=== PATIENT | male | born 1955 | race Caucasian/White ===

== ENCOUNTER 2023-08-30 10:18 | Outpatient (OUT) | payer MEDICARE, SELFPAY ==
[2023-08-30 11:46] LABS: Prostate Specific Antigen Scrn 0.44 ng/mL (<=4.00)
--- NOTE | 2023-08-30 12:55 | CT_ITS ---
The [address] [address] Patient Name: OREN PELLETIER MRN: [id number] date: 1955 Sex: M Assigned Patient Location: LAB Current Patient Location: LAB Accession/Order Number: [id number] Exam Date: 08/30/2023 13:02 Report Date: 08/30/2023 15:09 At the request of: MANDEEP CONTEH Procedure: CT lung screening low-dose EXAM TYPE: CT lung screening low-dose INDICATION: Cough, Current smoker COMPARISON: No prior CT scan of the chest available for comparison at the time of this dictation. TECHNIQUE: Noncontrast, Low dose, helical axial images of the chest were obtained, and thin section, axial MIP, and coronal and sagittal reformats were also submitted from the acquisition scanner under radiologist supervision. Each series was submitted in a lung algorithm. Dose reduction techniques were achieved by using automated exposure control and/or adjustment of mA and/or kV according to patient size and/or use of iterative reconstruction technique. FINDINGS: Please note that this examination was tailored for evaluation of pulmonary nodules, and therefore soft tissue detail is suboptimal. Heart size within normal limits. No pericardial effusion. Moderate coronary artery calcification. Normal caliber aorta. No mediastinal, hilar or axillary lymphadenopathy. No central endobronchial nodule. Mild diffuse predominantly paraseptal emphysematous change and bronchial wall thickening. Calcified granulomas right upper lobe. Focal bronchiolectasis left lower lobe. Dependent groundglass opacity and subsegmental atelectasis within the lower lobes bilaterally. Subsegmental atelectasis within the right middle lobe. No focal consolidation or pleural effusion. No pneumothorax. Partially calcified 2 mm right middle lobe juxtapleural nodule (3, 100) Simple hepatic cyst. No acute fracture. IMPRESSION : 1. Lung RADS category 2S: Benign with likely clinically significant finding inflammatory versus infectious bronchiolitis within the lower lobes bilaterally. Continued annual LD screening CT scan of the chest recommended. 2. Chronic changes of COPD. Electronically authenticated by: KM DIALLO Date: 08/30/2023 15:09
== END 2023-08-30 10:19 | disposition home or self-care (01) ==
LOC: LAB 10:21
PROVIDERS: PCP Internal Medicine; Visit Provider Internal Medicine
DX: Z12.5 Encounter for screening for malignant neoplasm of prostate (principal); F17.210 Nicotine dependence, cigarettes, uncomplicated; J44.9 Chronic obstructive pulmonary disease, unspecified
CPT/HCPCS: 36415; 71271; G0103

== ENCOUNTER 2023-09-17 09:45 | Outpatient (OUT) | payer MEDICARE, SELFPAY ==
--- NOTE | 2023-09-17 09:49 | US_ITS ---
The [address] [address] Patient Name: OREN PELLETIER MRN: [id number] date: 1955 Sex: M Assigned Patient Location: US Current Patient Location: US Accession/Order Number: [id number] Exam Date: 09/17/2023 10:00 Report Date: 09/17/2023 11:10 At the request of: MANDEEP CONTEH Procedure: US extremity nonvascular RT EXAM: US extremity nonvascular RT HISTORY: Palpable mass of soft tissue of wrist M79.89 COMPARISON: None. TECHNIQUE: Grayscale and color ultrasound FINDINGS: In the region of the patient's palpable abnormality, right wrist a focal heterogeneous area of hypoechogenicity with lobular contours, elongated measuring 2.2 x 0.4 x 1.2 cm. Additional adjacent lesion having similar echotexture measuring 1.3 x 0.4 x 0.3 cm. No definite color flow. US/US extremity nonvascular RT IMPRESSION: 2 focal avascular hyperechogenic lesion corresponding to the patient's palpable abnormality. These are indeterminate. Consider ganglion cysts Electronically authenticated by: PRABHJOT WU Date: 09/17/2023 11:10
--- OUTSIDE RECORDS SUMMARY | 2023-09-17 09:53 | XMS_ITS | CCD ---
Author Name Unknown Address [address] [place] [address] Organization [facility] Care Team Providers Care Customer Services Supervisor Name Role Phone WERO, DR KAUFMAN Admitting Unavailable WERO, DR KAUFMAN Attending Unavailable WERO, DR KAUFMAN Primary Care Unavailable WERO, DR KAUFMAN Consulting Unavailable WERO, DR KAUFMAN Admitting Unavailable EWRO, DR KAUFMAN Attending Unavailable WERO, DR KAUFMAN Primary Care Unavailable WERO, DR KAUFMAN Consulting Unavailable ASHLEIGH, IMMANUEL KATZ Admitting Unavailable ASHLEIGH, IMMANUEL KATZ Attending Unavailable WERO, DR KAUFMAN Primary Care Unavailable ASHLEIGH, IMMANUEL KATZ Consulting Unavailable WERO, DR KAUFMAN Admitting Unavailable WERO, DR KAUFMAN Attending Unavailable BALL, DR KAUFMAN Primary Care Unavailable WERO, DR KAUFMAN Consulting Unavailable Wero, Evans Unavailable Medications Current Medications Medication Drug Class(es) Dates Sig (Normalized) Sig (Original) amoxicillin 875 mg / clavulanate 125 mg oral tablet (2 sources) Penicillin-class Antibacterial Start: 08-17-2023 take 1 tablet by mouth every twelve hours Amoxicillin-Pot Clavulanate 875-125 MG 1 tablet Orally every 12 hrs for 7 days Aug, Active Chantix Continuing Month Colt (2 sources) Chantix Continuing Month Colt Active varenicline 1 mg oral tablet (1 source) Partial Cholinergic Nicotinic Agonist Start: 09-05-2023 take 1 mg by mouth twice daily Varenicline Active 1 MG PO Twice daily September 05, 2023 12:00am Completed/Discontinued Medications Medication Drug Class(es) Dates Sig (Normalized) Sig (Original) Chantix Continuing Month Colt 1MG (2 sources) Start: 07-23-2019 take 1 tablet by mouth once, then take 1 tablet by mouth twice daily Chantix Continuing Month Colt 1MG Chantix Continuing Month Colt 1MG, 1 (one) Tablet Tablet two times daily # 56, 07/23/2019, Ref. x1. Active Oral two times daily for 28 Begin after completing starter colt *Reorder from [employer] for eRx and Interaction Alerts* Jul, Not-Taking/PRN Problems Active Problems Problem Classification Problem Date Documented Date Episodic/Chronic Acute bronchitis (2 sources) Acute bronchitis; Translations: [Acute bronchitis due to other specified organisms] Episodic Anxiety disorders (2 sources) Generalized anxiety disorder; Translations: [Generalized anxiety disorder] Chronic Chronic obstructive pulmonary disease and bronchiectasis (12 sources) Simple chronic bronchitis; Translations: [Simple chronic bronchitis] Chronic Deficiency and other anemia (4 sources) Anemia, unspecified; Translations: [ANEMIA UNSPECIFIED] Onset: 02-02-2022 Episodic Deficiency and other anemia (2 sources) Megaloblastic anemia; Translations: [Other megaloblastic anemias, not elsewhere classified] Episodic Deficiency and other anemia (2 sources) Anemia; Translations: [Anemia, unspecified] Episodic Diabetes mellitus with complications (1 source) Type 2 diabetes mellitus with hyperglycemia; Translations: [TYPE 2 DM W/HYPERGLYCEMIA] Onset: 11-03-2021 Chronic Disorders of lipid metabolism (3 sources) Pure hypercholesterolemia, unspecified; Translations: [Pure hypercholesterolemia] Onset: 11-02-2021 Chronic Osteoarthritis (2 sources) Osteoarthritis of knee; Translations: [Unilateral primary osteoarthritis, left knee] Chronic Other connective tissue disease (1 source) Mass of wrist; Translations: [Other specified soft tissue disorders] 09-05-2023 Episodic Other connective tissue disease (1 source) Other specified soft tissue disorders; Translations: [Other disorders of soft tissue] 09-05-2023 Episodic Other hematologic conditions (2 sources) Other specified diseases of blood and blood-forming organs; 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] Chronic Other non-traumatic joint disorders (2 sources) Arthralgia of the upper arm; Translations: [Pain in left elbow] Episodic Other non-traumatic joint disorders (2 sources) Arthralgia of the lower leg; Translations: [Pain in left knee] Episodic Other nutritional; endocrine; and metabolic disorders (2 sources) Overweight; Translations: [Overweight] Episodic Other screening for suspected conditions (not mental disorders or infectious disease) (7 sources) Encounter for screening for malignant neoplasm of prostate; Translations: [Serum ferritin high] Onset: 11-02-2021 Episodic Other upper respiratory disease (2 sources) Allergic rhinitis due to pollen; Translations: [Allergic rhinitis due to pollen] Chronic Other upper respiratory infections (2 sources) Acute maxillary sinusitis; Translations: [Acute recurrent maxillary sinusitis] Episodic Substance-related disorders (5 sources) Tobacco user; Translations: [Nicotine dependence, cigarettes, uncomplicated] Chronic Past or Other Problems Problem Classification Problem Date Documented Da te Episodic/Chronic Immunizations and screening for infectious disease (4 sources) Encounter for immunization; Translations: [ENCOUNTER FOR IMMUNIZATION] Onset: 06-07-2021 Episodic Malaise and fatigue (5 sources) Other malaise; Translations: [Other fatigue] Onset: 10-28-2021 Episodic Results Test Name Value Interpretation Reference Range Facility No Panel Informationon 08-30 Prostate Specific Antigen Screen 0.44 ng/mL <=4.00 [facility] CBC AUTO DIFFon 02-02-2022 BASO # 0.1 103/ul Normal 0.0-0.1 [facility] Comment on above: Performed By: #### C BC #### [facility] [address] [place] [address] Dr. Joselito Sauceda Basophils/100 WBC (Bld) 0.8 % Normal 0.2-2.0 [facility] Comment on above: Performed By: #### C BC #### [facility] [address] [place] [address] Dr. Joselito Sauceda EO # 0.2 103/ul Normal 0.0-0.7 [facility] Comment on above: Performed By: #### C BC #### [facility] [address] [place] [address] Dr. Joselito Sauceda Eosinophils/100 WBC (Bld) 2.6 % Normal 0.9-7.0 [facility] Comment on above: Performed By: #### C BC #### [facility] [address] [place] [address] Dr. Joselito Sauceda Erythrocyte distribution width (RBC) [Ratio] 12.7 % Normal 11.0-15.0 [facility] Comment on above: Performed By: #### C BC #### [facility] [address] [place] [address] Dr. Joselito Sauceda Hematocrit (Bld) [Volume fraction] 40.8 % Critically low 42.0-54.0 [facility] Comment on above: Performed By: #### C BC #### [facility] [address] [place] [address] Dr. Joselito Sauceda Hemoglobin (Bld) [Mass/Vol] 14.0 g/dL Normal 14.0-18.0 [facility] Comment on above: Performed By: #### C BC #### [facility] [address] [place] [address] Dr. Joselito Sauceda IG # 0.02 10e3/ul Normal 0.00-0.03 [facility] Comment on above: Performed By: #### C BC #### [facility] [address] [place] [address] Dr. Joselito Sauceda IG % 0.3 % Normal 0.0-0.5 [facility] Comment on above: Performed By: #### C BC #### [facility] [address] [place] [address] Dr. Joselito Sauceda LYMPH # 1.9 103/ul Normal 1.2-3.8 [facility] Comment on above: Performed By: #### C BC #### [facility] [address] [place] [address] Dr. Joselito Sauceda Lymphocytes/100 WBC (Bld) 29.3 % Normal 20.5-60.0 [facility] Comment on above: Performed By: #### C BC #### [facility] [address] [place] [address] Dr. Joselito Sauceda MANUAL DIFF REQ NO Normal [facility] Comment on above: Performed By: #### C BC #### [facility] [address] [place] [address] Dr. Joselito Sauceda MCH (RBC) [Entitic mass] 36.2 pg Critically high 25.9-34.0 [facility] Comment on above: Performed By: #### C BC #### [facility] [address] [place] [address] Dr. Joselito Sauceda MCHC (RBC) [Mass/Vol] 34.3 g/dL Normal 29.9-35.2 [facility] Comment on above: Performed By: #### C BC #### [facility] [address] [address] [address] Joselito Sauceda MCV (RBC) [Entitic vol] 105.4 fL Critically high 80.0-94.0 [facility] Comment on above: Performed By: #### C BC #### [facility] [address] [address] [address] Joselito Sauceda MONO # 0.7 103/ul Normal 0.3-0.8 [facility] Comment on above: Performed By: #### C BC #### [facility] [address] [address] [address] Joselito Sauceda Monocytes/100 WBC (Bld) 10.0 % Normal 1.7-12.0 [facility] Comment on above: Performed By: #### C BC #### [facility] [address] [place] [address] Dr. Joselito Sauceda NEUT # 3.7 103/ul Normal 1.4-6.5 [facility] Comment on above: Performed By: #### C BC #### [facility] [address] [place] [address] Dr. Joselito Sauceda Neutrophils/100 WBC (Bld) 57.0 % Normal 43.0-75.0 [facility] Comment on above: Performed By: #### C BC #### [facility] [address] [address] [address] Joselito Sauceda Platelet mean volume (Bld) [Entitic vol] 9.7 fL Normal 9.5-13.5 [facility] Comment on above: Performed By: #### C BC #### [facility] [address] [address] [address] Joselito Sauceda PLT 226 103/ul Normal 150-450 [facility] Comment on above: Performed By: #### C BC #### [facility] [address] [place] [address] Dr. Joselito Sauceda RBC 3.87 106/ul Critically low 4.70-6.10 [facility] Comment on above: Performed By: #### C BC #### [facility] [address] [address] [address] Joselito Sauceda WBC 6.5 103/ul Normal 4.0-11.0 [facility] Comment on above: Performed By: #### C BC #### [facility] [address] [place] [address] Dr. Joselito Sauceda FERRITINon 11-02-2021 Ferritin [Mass/Vol] 622.0 ng/mL Critically high 17.9-464.0 [facility] Comment on above: Performed By: #### F ERR, B12FOL, FETIBC #### [facility] [address] [place] [address] Dr. Joselito Sauceda GLYCOHEMOGLOBIN A1Con 2021 ADA RECOMMENDATION ADA THERAPEUTIC TARGET 6.0 - 7.0 ACTION SUGGESTED > 7.0 Normal [facility] Comment on above: Performed By: #### A 1C #### [facility] [address] [place] [address] Dr. Joselito Sauceda Glucose [Mass/Vol] 105 mg/dL Normal [facility] Comment on above: Performed By: #### A 1C #### [facility] [address] [place] [address] Dr. Joselito Sauceda HbA1c (Bld) [Mass fraction] 5.3 % Normal <=6.0 [facility] Comment on above: Performed By: #### A 1C #### [facility] [address] [place] [address] Dr. Joselito Sauceda IRON AND TIBCon 11-02-2021 % SATURATION 51.0 % Normal [facility] Comment on above: Performed By: #### F ERR, B12FOL, FETIBC #### [facility] [address] [place] [address] Dr. Joselito Sauceda Iron [Mass/Vol] 158.0 ug/dL Normal 49.0-181.0 [facility] Comment on above: Performed By: #### F ERR, B12FOL, FETIBC #### [facility] [address] [place] [address] Dr. Joselito Sauceda TIBC DIRECT 310.0 ug/dL Normal 261.0-497.0 [facility] Comment on above: Performed By: #### F ERR, B12FOL, FETIBC #### [facility] [address] [place] [address] Dr. Joselito Sauceda VIT B12 AND FOLATEon 022 Cobalamin (Vitamin B12) [Mass/Vol] 452.0 pg/mL Normal 239.0-931.0 [facility] Comment on above: Performed By: #### F ERR, B12FOL, FETIBC #### [facility] [address] [place] [address] Dr. Joselito Sauceda FOLATE 19.80 ng/mL Normal >=2.76 [facility] Comment on above: Performed By: #### F ERR, B12FOL, FETIBC #### [facility] [address] [place] [address] Dr. Joselito Sauceda CBC AUTO DIFFon 10-28-2021 BASO # 0.1 103/ul Normal 0.0-0.1 [facility] Comment on above: Performed By: #### C BC #### [facility] [address] [place] [address] Dr. Joselito Sauceda Basophils/100 WBC (Bld) 0.7 % Normal 0.2-2.0 [facility] Comment on above: Performed By: #### C BC #### [facility] [address] [place] [address] Dr. Joselito Sauceda EO # 0.2 103/ul Normal 0.0-0.7 [facility] Comment on above: Performed By: #### C BC #### [facility] [address] [place] [address] Dr. Joselito Sauceda Eosinophils/100 WBC (Bld) 2.2 % Normal 0.9-7.0 [facility] Comment on above: Performed By: #### C BC #### [facility] [address] [place] [address] Dr. Joselito Sauceda Erythrocyte distribution width (RBC) [Ratio] 12.1 % Normal 11.0-15.0 [facility] Comment on above: Performed By: #### C BC #### [facility] [address] [place] [address] Dr. Joselito Sauceda Hematocrit (Bld) [Volume fraction] 41.1 % Critically low 42.0-54.0 [facility] Comment on above: Performed By: #### C BC #### [facility] [address] [place] [address] Dr. Joselito Sauceda Hemoglobin (Bld) [Mass/Vol] 13.9 g/dL Critically low 14.0-18.0 [facility] Comment on above: Performed By: #### C BC #### [facility] [address] [place] [address] Dr. Joselito Sauceda IG # 0.03 10e3/ul Normal 0.00-0.03 [facility] Comment on above: Performed By: #### C BC #### [facility] [address] [place] [address] Dr. Joselito Sauceda IG % 0.4 % Normal 0.0-0.5 [facility] Comment on above: Performed By: #### C BC #### [facility] [address] [place] [address] Dr. Joselito Sauceda LYMPH # 1.6 103/ul Normal 1.2-3.8 [facility] Comment on above: Performed By: #### C BC #### [facility] [address] [place] [address] Dr. Joselito Sauceda Lymphocytes/100 WBC (Bld) 21.5 % Normal 20.5-60.0 [facility] Comment on above: Performed By: #### C BC #### [facility] [address] [place] [address] Dr. Joselito Sauceda MANUAL DIFF REQ NO Normal [facility] Comment on above: Performed By: #### C BC #### [facility] [address] [place] [address] Dr. Joselito Sauceda MCH (RBC) [Entitic mass] 36.1 pg Critically high 25.9-34.0 [facility] Comment on above: Performed By: #### C BC #### [facility] [address] [address] [address] Joselito Sauceda MCHC (RBC) [Mass/Vol] 33.8 g/dL Normal 29.9-35.2 [facility] Comment on above: Performed By: #### C BC #### [facility] [address] [address] [address] Joselito Sauceda MCV (RBC) [Entitic vol] 106.8 fL Critically high 80.0-94.0 [facility] Comment on above: Performed By: #### C BC #### [facility] [address] [address] [address] Joselito Sauceda MONO # 0.9 103/ul Critically high 0.3-0.8 [facility] Comment on above: Performed By: #### C BC #### [facility] [address] [address] [address] Joselito Sauceda Monocytes/100 WBC (Bld) 12.5 % Critically high 1.7-12.0 [facility] Comment on above: Performed By: #### C BC #### [facility] [address] [address] [address] Joselito Sauceda NEUT # 4.6 103/ul Normal 1.4-6.5 [facility] Comment on above: Performed By: #### C BC #### [facility] [address] [address] [address] Joselito Sauceda Neutrophils/100 WBC (Bld) 62.7 % Normal 43.0-75.0 [facility] Comment on above: Performed By: #### C BC #### [facility] [address] [address] [address] Joselito Sauceda Platelet mean volume (Bld) [Entitic vol] 9.5 fL Normal 9.5-13.5 [facility] Comment on above: Performed By: #### C BC #### [facility] [address] [address] [address] Joselito Sauceda PLT 187 103/ul Normal 150-450 [facility] Comment on above: Performed By: #### C BC #### [facility] [address] [address] [address] Joselito Sauceda RBC 3.85 106/ul Critically low 4.70-6.10 [facility] Comment on above: Performed By: #### C BC #### [facility] [address] [address] [address] Joselito Sauceda WBC 7.4 103/ul Normal 4.0-11.0 [facility] Comment on above: Performed By: #### C BC #### [facility] [address] [address] [address] Joselito Sauceda LIPID PROFILEon 10-28-2021 CHOL-HDL RATIO NORM SEE BELOW Normal [facility] Comment on above: Result Comment: 3.3 - 4.4 LOW RISK 4.4 - 7.1 AVERAGE RISK 7.1 - 11.0 MODERATE RISK >11.0 HIGH RISK Performed By: #### B MP, LIPID #### [facility] [address] [place] [address] Dr. Joselito Sauceda Cholesterol [Mass/Vol] 227 mg/dL Critically high <=200 [facility] Comment on above: Performed By: #### B MP, LIPID #### [facility] [address] [place] [address] Dr. Joselito Sauceda Cholesterol in HDL [Mass/Vol] 66 mg/dL Critically high 40-60 [facility] Comment on above: Performed By: #### B MP, LIPID #### [facility] [address] [address] [address] Joselito Sauceda Cholesterol in LDL [Mass/Vol] 141.6 mg/dL Normal [facility] Comment on above: Performed By: #### B MP, LIPID #### [facility] [address] [address] [address] Joselito Sauceda Cholesterol.total/Cho lesterol in HDL [Mass ratio] 3.4 {ratio} Normal [facility] Comment on above: Performed By: #### B MP, LIPID #### [facility] [address] [place] [address] Dr. Joselito Sauceda HDL NORMAL > or = 60 mg/dl - LOW CARDIOVASCULAR RISK <40 mg/dl - HIGH CARDIOVASCULAR RISK Normal [facility] Comment on above: Performed By: #### B MP, LIPID #### [facility] [address] [address] [address] Joselito Sauceda LDL CALC NORMAL SEE BELOW Normal [facility] Comment on above: Result Comment: <100 mg/dl OPTIMAL 100 - 129 mg/dl NEAR OR ABOVE OPTIMAL 130 - 159 mg/dl BORDERLINE HIGH 160 - 189 mg/dl HIGH >190 mg/dl VERY HIGH Performed By: #### B MP, LIPID #### [facility] [address] [address] [address] Joselito Sauceda Triglyceride [Mass/Vol] 97 mg/dL Normal <=150 [facility] Comment on above: Performed By: #### B MP, LIPID #### [facility] [address] [place] [address] Dr. Joselito Sauceda VLDL CALC 19.4 mg/dL Normal [facility] Comment on above: Performed By: #### B MP, LIPID #### [facility] [address] [address] [address] Joselito Sauceda PROF CHEM 8 (BAS METB)on Anion gap [Moles/Vol] 13.0 mmol/L Normal [facility] Comment on above: Performed By: #### B MP, LIPID #### [facility] [address] [address] [address] Joselito Sauceda Calcium [Mass/Vol] 8.8 mg/dL Normal 8.5-10.1 [facility] Comment on above: Performed By: #### B MP, LIPID #### [facility] [address] [address] [address] Joselito Sauceda Chloride [Moles/Vol] 103 mmol/L Normal 98-107 [facility] Comment on above: Performed By: #### B MP, LIPID #### [facility] [address] [address] [address] Joselito Sauceda CO2 [Moles/Vol] 26.0 mmol/L Normal 22.0-30.0 [facility] Comment on above: Performed By: #### B MP, LIPID #### [facility] [address] [address] [address] Joselito Sauceda Creatinine [Mass/Vol] 0.75 mg/dL Normal 0.66-1.25 [facility] Comment on above: Performed By: #### B MP, LIPID #### [facility] [address] [address] [address] Joselito Sauceda EGFR-AF IRISH >60 Normal >=60 [facility] Comment on above: Performed By: #### B MP, LIPID #### [facility] [address] [address] [address] Joselito Sauceda EGFR-NON AF IRISH >60 Normal >=60 [facility] Comment on above: Performed By: #### B MP, LIPID #### [facility] [address] [address] [address] Joselito Sauceda Glucose [Mass/Vol] 139 mg/dL Critically high 74-106 [facility] Comment on above: Performed By: #### B MP, LIPID #### [facility] [address] [address] [address] Joselito Sauceda Potassium [Moles/Vol] 4.0 mmol/L Normal 3.4-5.0 [facility] Comment on above: Performed By: #### B MP, LIPID #### [facility] [address] [place] [address] Dr. Joselito Sauceda Sodium [Moles/Vol] 138 mmol/L Normal 137-145 [facility] Comment on above: Performed By: #### B MP, LIPID #### [facility] [address] [address] [address] Joselito Sacueda Urea nitrogen [Mass/Vol] 11.0 mg/dL Normal 7.0-18.0 [facility] Comment on above: Performed By: #### B MP, LIPID #### [facility] [address] [address] [address] Joselito Sauceda Urea nitrogen/Creatinine [Mass ratio] 14.7 mg/mg Normal [facility] Comment on above: Performed By: #### B MP, LIPID #### [facility] [address] [address] [address] Joselito Sauceda Vital Signs Date Time Vital Sign Value Performing Clinician Facility 09-05-2023 15:08-0500 Body height 162.56 cm [facility] 09-05-2023 15:08-0500 Body mass index (BMI) [Ratio] 24.3 kg/m2 [facility] 09-05-2023 15:08-0500 Body weight 64.41 kg [facility] 09-05-2023 15:08-0500 Diastolic blood pressure 72 mm[Hg] [facility] 09-05-2023 15:08-0500 Heart rate 69 /min [facility] 09-05-2023 15:08-0500 Respiratory rate 12 /min [facility] 09-05-2023 15:08-0500 Systolic blood pressure 117 mm[Hg] [facility] 08-17-2023 11:30-0500 Body height 162.56 cm Evans Ball Other [facility] 08-17-2023 11:30-0500 Body mass index (BMI) [Ratio] 24.51 kg/m2 Evans Ball Other [employer] Other 08-17-2023 11:30-0500 Body weight 64.77 kg Evans Ball Other [facility] 08-17-2023 11:30-0500 Diastolic blood pressure 76 mm[Hg] Evans Ball Other [facility] 08-17-2023 11:30-0500 Respiratory rate 12 /min Evans Ball Other [email or web address] [facility] [employer] Other 08-17-2023 11:30-0500 Systolic blood pressure 123 mm[Hg] Evans Ball Other [facility] Encounters Encounter Date Encounter Type Care Provider Facility Start: 09-05-2023 End: 09-05-2023 ambulatory [facility] Work Phone: Start: 09-05-2023 End: 09-05-2023 Patient encounter procedure [facility] Work Phone: Start: 08-30-2023 Non-patient / Non-visit [facility] [employer] Work Phone: Start: 08-17-2023 End: 08-17-2023 ambulatory Evans Conteh Other [employer] Other Start: 08-17-2023 Patient encounter procedure Evans Conteh [facility] Start: 08-17-2023 Telephone encounter Evans Conteh [facility] Start: 08-17-2023 End: 08-17-2023 Patient encounter procedure [facility]- Start: 02-02-2022 End: 02-03-[address] EVANS CONTEH Facility:[facility] Start: 11-02-2021 End: 11-03-[address] EVANS CONTEH Facility:[facility] Start: 10-28-2021 End: 10-29-[address] EVANS CONTEH Facility:[facility] Start: 06-07-2021 End: 06-08-2021 ambulatory IMMANUEL SOTELO Facility:[facility] Procedures Date Procedure Procedure Detail Performing Clinician Start: 10-28-[address] TOMPKINS [facility] [place] Comment on above: Performed By: #### P [facility] #### [facility] [address] [place] [address] Dr. Joselito Sauceda Plan of Treatment Date Care Activity Detail Author [facility] Immunizations Immunization Date Immunization Notes Care Provider Fa cility 02-07-2022 Prevnar 20 Evans Conteh Other [facility] 10-19-2020 COVID-19 Vaccine Pfi zer - Documentation Purposes Only Evans Conteh Other [facility] 09-27-2020 COVID-19 Vaccine Pfi zer - Documentation Purposes Only Evans Conteh Other [facility] 06-16-2020 influenza virus vaccine, split virus (incl. purified surface antigen) Evans Conteh Other [employer] Other 06-16-2020 influenza virus vaccine, unspecified formulation [facility] Payers Date Payer Category Payer Medicare [id number] 1961 Self-pay 1955 Unknown [id number] 1955 Unknown [id number] 1955 Unknown [id number] [id number] Unknown [id number] [id number] Unknown Sheela BC/BS [id number] Social History Date Type Detail Facility Sex Assigned At [employer] Other Start: 09-05-2023 Tobacco smoking stat [facility] Smoker (finding) [facility] Start: 1955 Sex Assigned At Male F [facility] Evaluation note 08-17-2023 Note Date & Type Note Facility 08-17-2023 Evaluation note Encounter Date Diagnosis Assessment Notes Aug, Medicare annual wellness visit, subsequent (ICD-10 - Z00.00) Personalized health advice was given to the beneficiary including a written plan for screenings discussed and provided. Advanced care planning reviewed and/or information given as requested. Additional counseling was provided here today in regards to, [ ]. The above visit was performed by [ ], under direct supervision of [ ]. Document reviewed and amended by provider signed below. CLAUDIA given to patient Order for PSA Aug, Cigarette nicotine dependence, uncomplicated (ICD-10 - F17.210) This patient has been encouraged to quit tobacco use immediately. They are aware of the hazards associated with tobacco use, including but not limited to respiratory infections, vascular disease and cancers. Discussed LDCT for lung cancer screening Aug, Simple chronic bronchitis (ICD-10 - J41.0) Mucolytics as needed. Push fluids Instructed on smoking cessation. Aug, Chronic obstructive pulmonary disease with (acute) lower respiratory infection (ICD-10 - J44.0) Instructed to use Robitussin or Mucinex for cough, saline or Flonase NS for congestion, Tylenol for pain and fever. Initiate antibiotics Aug, Screening PSA (prostate specific antigen) (ICD-10 - Z12.5) Denies dysuria or hematuria Yearly PSA and FELA Aug, Colon cancer screening (ICD-10 - Z12.11) Cologuard refused. Last colonoscopy > 10 years ago and refuses repeat. He denies change in appetite, weight or bowel habits. He denies abdominal pain, melena or hematochezia. He denies heartburn or dysphagia [employer] Other Evaluation note Note Date & Type Note Facility Evaluation note No Information [employer] Other Evaluation note Note Date & Type Note Facility Evaluation note Diagnosis Onset Date Cigarette nicotine dependence, uncomplicated acute Palpable mass of soft tissue of wrist acute [facility] Work Phone: History general Narrative - Reported Note Date & Type Note Facility History general Narrative - Reported Type Medical History Elevated ferritin Medical History Macrocytosis Medical History Chronic bronchitis, simple Medical History Pure hypercholesterolemia Medical History Body mass index (BMI ) of 25.0 to 29.9 Medical History Cigarette nicotine d ependence, uncomplicated Medical History COPD exacerbation Medical History Left elbow pain Medical History OPAL (generalized anx iety disorder) Medical History Anemia Medical History Megaloblastic anemia Medical History Primary osteoarthrit is of left knee Medical History Acute pain of left knee Medical History Acute bronchitis due to other specified organisms Medical History Acute recurrent maxi llary sinusitis Medical History Seasonal allergic rh initis due to pollen Surgical History Arthroscopy Knee 09/11/2017 Hospitalization History see surgical history [employer] Other Summary Purpose Family History No Family History Records Found Advance Directives Advance Directive Response Recorded Date/ Time Advance Directives No August 2:45pm Chief Complaint and Reason for Visit Chief Complaint Wellness- Possible U ri - Over It Now Bump on Wrist Reason for Visit Cigarette nicotine d ependence, uncomplicated Palpable mass of soft tissue of wrist Additional Source Comments (unrecognized sect ion and content) No Status Records Found INFORMATION SOURCE (unrecogn ized section and content) DATE CREATED AUTHOR 02/08/2022 [employer] [facility] [facility] REASON FOR VISIT (unrecogniz ed section and content) Wellness- possible URI - ove r it nowLDCT Care Teams (unrecognized sec tion and content) Team Status: Active Member Role Status Dates Evans Conteh , DO Primary Care Provider Active Team Status: Inactive Member Role Status Dates Evans Conteh , DO Attending Provider Active Sta rt: August 17, 2023 End: August 17, 2023 Team Status: Active Member Role Status Dates Evans Conteh , Primary Care Provide r, Attending Provider Active Start: August 30, 2023 Team Status: Inactive Member Role Status Dates Evans Conteh , DO Primary Care Provide r, Attending Provider Active Start: September 05, 2023 End: September 05, 2023 Goals (unrecognized section and content) Goals may be documented in a n alternate section FOR RECORDS PERTAINING TO PATIENTS WHO ARE OR HAVE BEEN ENROLLED IN A CHEMICAL DEPENDENCY/SUBSTANCEABUSE PROGRAM, SOME INFORMATION MAY BE OMITTED. This clinical summary was aggregated from multiple sources. Caution should be exercised in using it in the provision of clinical care. This summary normalizes information from multiple sources, and as a consequence, information in this document may materially change the coding, format and clinical context of patient data. In addition, data may be omitted in some cases. CLINICAL DECISIONS SHOULD BE BASED ON THE PRIMARY CLINICAL RECORDS. [employer] provides no warranty or guarantee of the accuracy or completeness of information in this document.
== END 2023-09-17 09:46 | disposition home or self-care (01) ==
LOC: US 09:45
PROVIDERS: PCP Internal Medicine; Visit Provider Internal Medicine
DX: M79.89 Other specified soft tissue disorders (principal)
CPT/HCPCS: 76882

== ENCOUNTER 2025-01-11 08:44 | Emergency (ER) | payer MEDICARE, SELFPAY ==
[2025-01-11 08:55] VITALS: BP 123/76; PULSE 83; TEMP 37; O2SAT 98; BMI 26.9
--- NOTE | 2025-01-11 09:05 | XR_ITS ---
[id number] Patient Name: OREN PELLETIER MRN: [id number] date: 1955 Sex: M Assigned Patient Location: ED.MAIN Current Patient Location: ED.MAIN Accession/Order Number: [id number] Exam Date: 01/11/2025 10:16 Report Date: 01/11/2025 10:18 At the request of: MINGO GALDAMEZ MD Procedure: XR elbow LT min 3V LEFT ELBOW - 3 views CLINICAL HISTORY: Swelling, likely bursitis COMPARISON: 09/18/2019 FINDINGS: Bursal fluid collection identified moderate in size. Otherwise moderate degenerative changes with ossific spurring and joint space narrowing. No evidence acute fractures or dislocation XR/XR elbow LT min 3V IMPRESSION: Moderate degenerative changes with moderate-sized bursal fluid collection. No fracture-dislocation. Impression dictated by: Edwin Florez M.D. 01/11/2025 10:18 AM Dictation Location: [place] [address] Electronically authenticated by: [id number] Y Date: 01/11/2025 10:18
--- NOTE | 2025-01-11 09:06 | ED.GENADUL1 ---
HPI HPI - General Adult General Chief complaint: Extremity Problem, Nontraumatic Stated complaint: L ELBOW & L ARM SWELLING Time Seen by Provider: 01/11/25 09:01 Source: patient Mode of arrival: walk-in Limitations: no limitations History of Present Illness HPI narrative: 69-year-old male presents to the emergency department for swelling in his left elbow. It originally started 4 days ago and was not precipitated by any trauma. 2 days ago he went to an urgent care where he states they drained 30 mL of brownish liquid. Subsequently its become red and swollen, much more swollen than it was previously. He also states he does not feel good and he had trouble sleeping. Related Data Previous Rx's ?Medication ?Instructions ?Recorded acetaminophen 300 mg-codeine 30 mg 1 tab PO Q6H PRN pain 5 days #20 01/11/25 tablet tabs cephalexin 500 mg capsule 500 mg PO QID 10 days #40 caps 01/11/25 Allergies Allergy/AdvReac Type Severity Reaction Status Date / Time No Known Drug Allergies Allergy Verified 01/11/25 08:59 Review of Systems ROS Narrative A ten point review of systems is negative except as noted above. PFSH PFSH Social History Little interest or pleasure in doing things: not at all Feeling down, depressed, or hopeless: not at all Exam Narrative Exam Narrative: Nurses note and vital signs reviewed and patient is not hypoxic. General: The patient appears well and in no apparent distress. Patient is resting comfortably on cart. Skin: Warm, dry, no pallor noted. There is no rash noted. Head: Normocephalic, atraumatic Eye: Normal conjunctiva, no drainage Ears, Nose, Mouth, and Throat: oral mucosa is moist. Nares patent. Cardiovascular: Regular Rate and Rhythm Respiratory: Patient is in no distress, no accessory muscle use, lungs are clear to auscultation, no wheezing, rales or rhonchi Back: non-tender, no CVA tenderness bilaterally to percussion. GI: Normal bowel sounds, no tenderness to palpation, no masses appreciated. No rebound, guarding, or rigidity noted. Musculoskeletal: The left elbow is examined. There is significant erythema over the olecranon area extending onto the forearm. There is fluctuance to the swelling and it is somewhat warm to touch Neurological: A&O, normal speech Psychiatric: Cooperative Constitutional Vital Signs, click to edit/add: Last Vital Signs Temp 98.6 F 01/11/25 08:55 Pulse 82 01/11/25 09:13 Resp 18 01/11/25 08:55 BP 123/76 01/11/25 08:55 Pulse Ox 98 01/11/25 08:55 O2 Del Method Room Air 01/11/25 08:55 Course Vital Signs Vital signs: Vital Signs Temperature 98.6 F 01/11/25 08:55 Pulse Rate 83 01/11/25 08:55 Respiratory Rate 18 01/11/25 08:55 Blood Pressure 123/76 01/11/25 08:55 Pulse Oximetry 98 01/11/25 08:55 Oxygen Delivery Method Room Air 01/11/25 08:55 Temperature 98.6 F 01/11/25 08:55 Pulse Rate 82 01/11/25 09:13 Respiratory Rate 18 01/11/25 08:55 Blood Pressure 123/76 01/11/25 08:55 Pulse Oximetry 98 01/11/25 08:55 Oxygen Delivery Method Room Air 01/11/25 08:55 Medical Decision Making [facility] Narrative Medical decision making narrative: The patient has bursitis and my concern is for septic bursitis. Dr. Mcwilliams was consulted and we discussed the case including his lab results of elevated WBC and ESR. Dr. Mcwilliams recommends aspiration and culture. He recommended also IV vancomycin and home on oral Keflex and the patient will be seen by Dr. Mcwilliams tomorrow. Brendan wrap and sling applied, application checked by me and found to be appropriate, he is neurovascularly intact. The importance of follow-up was discussed with the patient and his . The following procedure was performed by me. Local infiltration was carried out with 1% lidocaine without epinephrine resulting in complete skin anesthesia. The left elbow olecranon area was prepped with Betadine x 3 and draped sterilely. Using an 18-gauge needle 30 mL of cloudy yellow fluid was extracted. It was sent for culture and cell count. Differential Diagnosis Differential Diagnosis: Bursitis, septic bursitis, cellulitis, abscess Lab Data Lab results reviewed: Yes I reviewed the patient's lab results Labs: Lab Results 01/11/25 Range/Units 09:12 WBC 16.5 H (4.0-11.0) 10^3/uL RBC 3.86 L (4.70-6.10) 10^6/uL Hgb 13.3 L (14.0-18.0) g/dL Hct 38.6 L (42.0-54.0) % MCV 100.0 H (80.0-94.0) fL MCH 34.5 H (25.9-34.0) pg MCHC 34.5 (29.9-35.2) g/dL RDW 12.8 (11.0-15.0) % Plt Count 218 (150-450) 10^3/uL MPV 9.5 (9.5-13.5) fL Seg Neuts % (Manual) 70.0 (43.0-75.0) Lymphocytes % (Manual) 18.0 L (20.5-60.0) % Monocytes % (Manual) 11.0 (1.7-12.0) % Eosinophils % (Manual) 1.0 (0.9-7.0) % Basophils % (Manual) 0.0 L (0.2-2.0) % Neutrophils # (Manual) 11.55 H (1.4-6.5) 10^3/uL Lymphocytes # (Manual) 2.97 (1.20-3.80) 10^3/uL Monocytes # (Manual) 1.81 H (0.30-0.80) 10^3/uL Eosinophils # (Manual) 0.16 (0.00-0.70) 10^3/uL Basophils # (Manual) 0.00 (0.00-0.10) 10^3/uL Anisocytosis 1+ Macrocytosis 1+ ESR 75 H (<=20) mm/hr Sodium 139 (136-145) mmol/L Potassium 4.2 (3.5-5.1) mmol/L Chloride 102 (98-107) mmol/L Carbon Dioxide 26.8 (21.0-32.0) mmol/L Anion Gap 14.4 BUN 13.0 (7.0-18.0) mg/dL Creatinine 0.67 L (0.70-1.30) mg/dL Est GFR ( Amer) >60 (>=60 mL/min/1.73m^2) Est GFR (Non-Af Amer) >60 (>=60 mL/min/1.73m^2) BUN/Creatinine Ratio 19.4 Glucose 110 H (74-106) mg/dL Calcium 9.3 (8.5-10.1) mg/dL Imaging Data Left elbow x-ray: Radiologist's impression: ITS Impressions Elbow X-Ray 01/11/25 09:05 IMPRESSION: Moderate degenerative changes with moderate-sized bursal fluid collection. No fracture-dislocation. Impression dictated by: Edwin Florez M.D. 01/11/2025 10:18 AM Dictation Location: [employer] Electronically authenticated by: [id number] Y Date: 01/11/2025 10:18 Discharge Plan Discharge Chief Complaint: Extremity Problem, Nontraumatic Clinical Impression: Bursitis Patient Disposition: Home, Self-Care Time of Disposition Decision: 11:39 Condition: Good Mode of Transportation: Private Vehicle Prescriptions / Home Meds: New acetaminophen-codeine 300-30 mg tablet 1 tab PO Q6H PRN (Reason: pain) 5 Days Qty: 20 0RF cephalexin 500 mg capsule 500 mg PO QID 10 Days Qty: 40 0RF Print Language: Citizen Of [place] Instructions: Elbow Bursitis (ED) Additional Instructions: Call Dr. Mcwilliams's office in the morning to be seen tomorrow. Leave the Brendan wrap on to prevent reaccumulation of fluid. Limit use of the arm with the sling. Referrals: Physician,Non-Staff, [Physician] - 1 week GRAEME MCWILLIAMS [Referring] - 01/12/25
[2025-01-11 09:13] VITALS: PULSE 82
[2025-01-11 09:18] LABS: Hematocrit 38.6 % (42.0-54.0); Hemoglobin 13.3 g/dL (14.0-18.0); Mean Corpuscular HGB Conc 34.5 g/dL (29.9-35.2); Mean Corpuscular Hemoglobin 34.5 pg (25.9-34.0); Mean Platelet Volume 9.5 fL (9.5-13.5); Platelet Count 218 10^3/uL (150-450); Red Blood Count 3.86 10^6/uL (4.70-6.10); Red Cell Distribution Width 12.8 % (11.0-15.0); White Blood Count 16.5 10^3/uL (4.0-11.0)
[2025-01-11 09:26] LABS: Anion Gap 14.4; BUN Creatinine Ratio 19.4; Calcium 9.3 mg/dL (8.5-10.1); Carbon Dioxide 26.8 mmol/L (21.0-32.0); Chloride 102 mmol/L (98-107); Estimated GFR (African America >60 (>=60 mL/min/1.73m^2); Estimated GFR (Non-African Ame >60 (>=60 mL/min/1.73m^2); Glucose 110 mg/dL (74-106); Potassium 4.2 mmol/L (3.5-5.1); Sodium 139 mmol/L (136-145)
[2025-01-11 09:28] LABS: Erythrocyte Sedimentation Rate 75 mm/hr (<=20)
--- OUTSIDE RECORDS SUMMARY | 2025-01-11 09:34 | XMS_ITS | CCD ---
Author Organization [facility] Care Team Providers Care Carpenter Packing Name Role Phone TERRENCE, DR KAUFMAN Admitting Unavailable TERRENCE, DR KAUFMAN Attending Unavailable TERRENCE, DR KAUFMAN Primary Care Unavailable TERRENCE, DR KAUFMAN Consulting Unavailable TERRENCE, DR KAUFMAN Admitting Unavailable TERRENCE, DR KAUFMAN Attending Unavailable TERRENCE, DR KAUFMAN Primary Care Unavailable TERRENCE, DR KAUFMAN Consulting Unavailable ASHLEIGH, IMMANUEL KATZ Admitting Unavailable ASHLEIGH, IMMANUEL KATZ Attending Unavailable TERRENCE, DR KAUFMAN Primary Care Unavailable ASHLEIGH, IMMANUEL KATZ Consulting Unavailable TERRENCE, DR KAUFMAN Admitting Unavailable TERRENCE, DR KAUFMAN Attending Unavailable TERRENCE, DR KAUFMAN Primary Care Unavailable TERRENCE, DR KAUFMAN Consulting Unavailable Evans Conteh Unavailable DO Evans Conteh Primary Care Provider [phone] DO Scot Garnett Attending Provider Aime ROA Attending Unavailable EVANS CONTEH Referring Unavailable Evans Conteh DO Primary Care Provider [phone] Evans Conteh DO Attending Provider Nimisha Garnett APRN Attending Provider Nimisha Garnett Admitting Unavailable Nimisha Garnett Attending Unavailable Medications Current Medications Medication Drug Class(es) Dates Sig (Normalized) Sig (Original) amoxicillin 875 mg / clavulanate 125 mg oral tablet (2 sources) Penicillin-class Antibacterial Start: 08-17-2023 take 1 tablet by mouth every twelve hours Amoxicillin-Pot Clavulanate 875-125 MG 1 tablet Orally every 12 hrs for 7 days Aug, Active atorvastatin 20 mg oral tablet (7 sources) HMG-CoA Reductase Inhibitor Start: 01-09-2025 take 1 tablet by mouth once daily Start: 05-23-2024 End: 12-29-2024 Atorvastatin 20 mg tablet Discontinued 0 .ROUTE .COMPLEX May 23, 2024 8:21am December 29, 2024 9:03am On Hold: caused excess tearing TAKE 1 TABLET EVERY EVENING Start: 11-28-2023 End: 05-23-2024 take 1 tablet by mouth once daily in the evening Atorvastatin 20 mg tablet Discontinued 20 MG PO Every evening November 28, 2023 12:00am May 23, 2024 8:21am Chantix Continuing Month Colt (2 sources) Chantix Continui ng Month Colt Active Completed/Discontinued Medications Medication Drug Class(es) Dates Sig [...] Begin after completing starter colt *Reorder from [facility] for eRx and Interaction Alerts* Jul, Not-Taking/PRN meloxicam 15 mg oral tablet (5 sources) Nonsteroidal Anti-inflammatory Drug Start: 08-09-2024 take 1 tablet by mouth once daily as needed Start: 04-28-2024 End: 08-09-2024 take 1 tablet by mouth once daily Meloxicam 15 mg tablet Discontinued 15 MG PO Daily April 28, 2024 12:00am August 09, 2024 8:40am varenicline 1 mg oral tablet (7 sources) Partial Cholinergic Nicotinic Agonist Start: 09-05-2023 End: 12-26-2024 take 1 tablet by mouth twice daily Varenicline Tartrate 1 mg tablet Discontinued 1 MG PO Twice daily September 05, 2023 1:00am December 26, 2024 7:06am Problems Active Problems Problem Classification Problem Date Documented Date Episodic/Chronic Acute bronchitis (2 sources) Acute bronchitis; Translations: [Acute bronchitis due to other specified organisms] Episodic Anxiety disorders (2 sources) Generalized anxiety disorder; Translations: [Generalized anxiety disorder] Chronic Chronic obstructive pulmonary disease and bronchiectasis (20 sources) Simple chronic bronchitis; Translations: [Simple chronic bronchitis] Chronic Deficiency and other anemia (5 sources) Anemia, unspecified; Translations: [Anemia, unspecified] Onset: 02-02-2022 Episodic Deficiency and other anemia (2 sources) Megaloblastic anemia; Translations: [Other megaloblastic anemias, not elsewhere classified] Episodic Deficiency and other anemia (4 sources) Anemia; Translations: [Anemia, unspecified] 10-25-2023 Episodic Diabetes mellitus with complications (1 source) Type 2 diabetes mellitus with hyperglycemia; Translations: [TYPE 2 DM W/HYPERGLYCEMIA] Onset: 11-03-2021 Chronic Disorders of lipid metabolism (10 sources) Pure hypercholesterolemia, unspecified; Translations: [Pure hypercholesterolemia] Onset: 11-02-2021 10-23-2023 Chronic Osteoarthritis (9 sources) Osteoarthritis of knee; Translations: [Unilateral primary osteoarthritis, left knee] 10-08-2023 Chronic Other connective tissue disease (5 sources) Mass of wrist; Translations: [Other specified soft tissue disorders] 09-05-2023 Episodic Other connective tissue disease (7 sources) Other specified soft tissue disorders; Translations: [Other disorders of soft tissue] 09-05-2023 Episodic Other connective tissue disease (4 sources) Hand pain; Translations: [Pain in right hand] 10-05-2023 Episodic Other connective tissue disease (3 sources) Bursitis of olecranon of left elbow; Translations: [Olecranon bursitis, left elbow] 01-09-2025 Episodic Other connective tissue disease (1 source) Olecranon bursitis, left elbow; Translations: [Olecranon bursitis, left elbow] Onset: 01-09-2025 Episodic Other hematologic conditions (2 sources) Other specified diseases of blood and blood-forming organs; 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] Chronic Other non-traumatic joint disorders (2 sources) Arthralgia of the upper arm; Translations: [Pain in left elbow] Episodic Other non-traumatic joint disorders (2 sources) Arthralgia of the lower leg; Translations: [Pain in left knee] Episodic Other non-traumatic joint disorders (4 sources) Pain in wrist; Translations: [Pain in right wrist] 10-08-2023 Episodic Other non-traumatic joint disorders (3 sources) Pain in right wrist; Translations: [Pain in joint, forearm] 10-08-2023 Episodic Other nutritional; endocrine; and metabolic disorders (2 sources) Overweight; Translations: [Overweight] Episodic Other screening for suspected conditions (not mental disorders or infectious disease) (20 sources) Encounter for screening for malignant neoplasm of prostate; Translations: [Serum ferritin high] Onset: 11-02-2021 Episodic Other upper respiratory disease (2 sources) Allergic rhinitis due to pollen; Translations: [Allergic rhinitis due to pollen] Chronic Other upper respiratory infections (2 sources) Acute maxillary sinusitis; Translations: [Acute recurrent maxillary sinusitis] Episodic Substance-related disorders (17 sources) Tobacco user; Translations: [Nicotine dependence, cigarettes, uncomplicated] Chronic Unclassified (4 sources) Patient encounter status; Translations: [Z12.11 - Encounter for screening for malignant neoplasm of colon] Past or Other Problems Problem Classification Problem Date Documented Da te Episodic/Chronic Immunizations and screening for infectious disease (4 sources) Encounter for immunization; Translations: [ENCOUNTER FOR IMMUNIZATION] Onset: 06-07-2021 Episodic Malaise and fatigue (5 sources) Other malaise; Translations: [Other fatigue] Onset: 10-28-2021 Episodic Results Test Name Value Interpretation Reference Range Facility Gram Stainon 01-09-2025 Microscopic observation Gram stain Nom (Unsp spec) Olecranon bursitis of left elbow Gram Stain Result 1+ White Blood Cells No Bacteria Seen PERFORMED BY: [place] [id number] PATHOLOGIST REMEDIAL TEACHER DARY GONZALES M.D. Normal [facility] Comment on above: Performed By: #### G S #### [address] No Panel Informationon 08-30 Prostate Specific Antigen Screen 0.44 ng/mL <=4.00 [facility] CBC AUTO DIFFon 02-02-2022 BASO # 0.1 103/ul Normal 0.0-0.1 [facility] Comment on above: Performed By: #### C BC #### [facility] [address] [place] [address] Dr. Joselito Sauceda Basophils/100 WBC (Bld) 0.8 % Normal 0.2-2.0 [facility] Comment on above: Performed By: #### C BC #### [facility] [address] [place] [address] Dr. Joselito Sauceda EO # 0.2 103/ul Normal 0.0-0.7 [facility] Comment on above: Performed By: #### C BC #### [facility] [address] [place] [address] Dr. Joselito Sauceda Eosinophils/100 WBC (Bld) 2.6 % Normal 0.9-7.0 [facility] Comment on above: Performed By: #### C BC #### [facility] [address] [place] [address] Dr. Joselito Sauceda Erythrocyte distribution width (RBC) [Ratio] 12.7 % Normal 11.0-15.0 [facility] Comment on above: Performed By: #### C BC #### [facility] [address] [place] [address] Dr. Joselito Sauceda Hematocrit (Bld) [Volume fraction] 40.8 % Critically low 42.0-54.0 [facility] Comment on above: Performed By: #### C BC #### [facility] [address] [place] [address] Dr. Joselito Sauceda Hemoglobin (Bld) [Mass/Vol] 14.0 g/dL Normal 14.0-18.0 [facility] Comment on above: Performed By: #### C BC #### [facility] [address] [place] [address] Dr. Joselito Sauceda IG # 0.02 10e3/ul Normal 0.00-0.03 [facility] Comment on above: Performed By: #### C BC #### [facility] [address] [place] [address] Dr. Joselito Sauceda IG % 0.3 % Normal 0.0-0.5 [facility] Comment on above: Performed By: #### C BC #### [facility] [address] [place] [address] Dr. Joselito Sauceda LYMPH # 1.9 103/ul Normal 1.2-3.8 [facility] Comment on above: Performed By: #### C BC #### [facility] [address] [place] [address] Dr. Joselito Sauceda Lymphocytes/100 WBC (Bld) 29.3 % Normal 20.5-60.0 [facility] Comment on above: Performed By: #### C BC #### [facility] [address] [place] [address] Dr. Joselito Sauceda MANUAL DIFF REQ NO Normal [facility] Comment on above: Performed By: #### C BC #### [facility] [address] [place] [address] Dr. Joselito Sauceda MCH (RBC) [Entitic mass] 36.2 pg Critically high 25.9-34.0 [facility] Comment on above: Performed By: #### C BC #### [facility] [address] [place] [address] Dr. Joselito Sauceda MCHC (RBC) [Mass/Vol] 34.3 g/dL Normal 29.9-35.2 [facility] Comment on above: Performed By: #### C BC #### [facility] [address] [place] [address] Dr. Joselito Sauceda MCV (RBC) [Entitic vol] 105.4 fL Critically high 80.0-94.0 [facility] Comment on above: Performed By: #### C BC #### [facility] [address] [place] [address] Dr. Joselito Sauceda MONO # 0.7 103/ul Normal 0.3-0.8 [facility] Comment on above: Performed By: #### C BC #### [facility] [address] [place] [address] Dr. Joselito Sauceda Monocytes/100 WBC (Bld) 10.0 % Normal 1.7-12.0 [facility] Comment on above: Performed By: #### C BC #### [facility] [address] [place] [address] Dr. Joselito Sauceda NEUT # 3.7 103/ul Normal 1.4-6.5 [facility] Comment on above: Performed By: #### C BC #### [facility] [address] [place] [address] Dr. Joselito Sauceda Neutrophils/100 WBC (Bld) 57.0 % Normal 43.0-75.0 [facility] Comment on above: Performed By: #### C BC #### [facility] [address] [address] [address] Joselito Sauceda Platelet mean volume (Bld) [Entitic vol] 9.7 fL Normal 9.5-13.5 [facility] Comment on above: Performed By: #### C BC #### [facility] [address] [address] [address] Joselito Sauceda PLT 226 103/ul Normal 150-450 [facility] Comment on above: Performed By: #### C BC #### [facility] [address] [address] [address] Joselito Saucdea RBC 3.87 106/ul Critically low 4.70-6.10 [facility] Comment on above: Performed By: #### C BC #### [facility] [address] [place] [address] Dr. Joselito Sauceda WBC 6.5 103/ul Normal 4.0-11.0 [facility] Comment on above: Performed By: #### C BC #### [facility] [address] [place] [address] Dr. Joselito Sauceda FERRITINon 11-02-2021 Ferritin [Mass/Vol] 622.0 ng/mL Critically high 17.9-464.0 [facility] Comment on above: Performed By: #### F ERR, B12FOL, FETIBC #### [facility] [address] [place] [address] Dr. Joselito Sauceda GLYCOHEMOGLOBIN A1Con 2021 ADA RECOMMENDATION ADA THERAPEUTIC TARGET 6.0 - 7.0 ACTION SUGGESTED > 7.0 Normal [facility] Comment on above: Performed By: #### A 1C #### [facility] [address] [place] [address] Dr. Joselito Sauceda Glucose [Mass/Vol] 105 mg/dL Normal [facility] Comment on above: Performed By: #### A 1C #### [facility] [address] [place] [address] Dr. Joselito Sauceda HbA1c (Bld) [Mass fraction] 5.3 % Normal <=6.0 [facility] Comment on above: Performed By: #### A 1C #### [facility] [address] [place] [address] Dr. Joselito Sauceda IRON AND TIBCon 11-02-2021 % SATURATION 51.0 % Normal [facility] Comment on above: Performed By: #### F ERR, B12FOL, FETIBC #### [facility] [address] [place] [address] Dr. Joselito Sauceda Iron [Mass/Vol] 158.0 ug/dL Normal 49.0-181.0 [facility] Comment on above: Performed By: #### F ERR, B12FOL, FETIBC #### [facility] [address] [place] [address] Dr. Joselito Sauceda TIBC DIRECT 310.0 ug/dL Normal 261.0-497.0 [facility] Comment on above: Performed By: #### F ERR, B12FOL, FETIBC #### [facility] [address] [place] [address] Dr. Joselito Sauceda VIT B12 AND FOLATEon 022 Cobalamin (Vitamin B12) [Mass/Vol] 452.0 pg/mL Normal 239.0-931.0 [facility] Comment on above: Performed By: #### F ERR, B12FOL, FETIBC #### [facility] [address] [place] [address] Dr. Joselito Sauceda FOLATE 19.80 ng/mL Normal >=2.76 [facility] Comment on above: Performed By: #### F ERR, B12FOL, FETIBC #### [facility] [address] [place] [address] Dr. Joselito Sauceda CBC AUTO DIFFon 10-28-2021 BASO # 0.1 103/ul Normal 0.0-0.1 [facility] Comment on above: Performed By: #### C BC #### [facility] [address] [place] [address] Dr. Joselito Sauceda Basophils/100 WBC (Bld) 0.7 % Normal 0.2-2.0 [facility] Comment on above: Performed By: #### C BC #### [facility] [address] [place] [address] Dr. Joselito Sauceda EO # 0.2 103/ul Normal 0.0-0.7 [facility] Comment on above: Performed By: #### C BC #### [facility] [address] [place] [address] Dr. Joselito Sauceda Eosinophils/100 WBC (Bld) 2.2 % Normal 0.9-7.0 [facility] Comment on above: Performed By: #### C BC #### [facility] [address] [place] [address] Dr. Joselito Sauceda Erythrocyte distribution width (RBC) [Ratio] 12.1 % Normal 11.0-15.0 [facility] Comment on above: Performed By: #### C BC #### [facility] [address] [place] [address] Dr. Joselito Sauceda Hematocrit (Bld) [Volume fraction] 41.1 % Critically low 42.0-54.0 [facility] Comment on above: Performed By: #### C BC #### [facility] [address] [place] [address] Dr. Joselito Sauceda Hemoglobin (Bld) [Mass/Vol] 13.9 g/dL Critically low 14.0-18.0 [facility] Comment on above: Performed By: #### C BC #### [facility] [address] [place] [address] Dr. Joselito Sauceda IG # 0.03 10e3/ul Normal 0.00-0.03 [facility] Comment on above: Performed By: #### C BC #### [facility] [address] [place] [address] Dr. Joselito Sauceda IG % 0.4 % Normal 0.0-0.5 [facility] Comment on above: Performed By: #### C BC #### [facility] [address] [place] [address] Dr. Joselito Sauceda LYMPH # 1.6 103/ul Normal 1.2-3.8 [facility] Comment on above: Performed By: #### C BC #### [facility] [address] [address] [address] Joselito Sauceda Lymphocytes/100 WBC (Bld) 21.5 % Normal 20.5-60.0 [facility] Comment on above: Performed By: #### C BC #### [facility] [address] [place] [address] Dr. Joselito Sauceda MANUAL DIFF REQ NO Normal [facility] Comment on above: Performed By: #### C BC #### [facility] [address] [place] [address] Dr. Joselito Sauceda MCH (RBC) [Entitic mass] 36.1 pg Critically high 25.9-34.0 [facility] Comment on above: Performed By: #### C BC #### [facility] [address] [place] [address] Dr. Joselito Sauceda MCHC (RBC) [Mass/Vol] 33.8 g/dL Normal 29.9-35.2 [facility] Comment on above: Performed By: #### C BC #### [facility] [address] [place] [address] Dr. Joselito Sauceda MCV (RBC) [Entitic vol] 106.8 fL Critically high 80.0-94.0 [facility] Comment on above: Performed By: #### C BC #### [facility] [address] [place] [address] Dr. Joselito Sauceda MONO # 0.9 103/ul Critically high 0.3-0.8 [facility] Comment on above: Performed By: #### C BC #### [facility] [address] [place] [address] Dr. Joselito Sauceda Monocytes/100 WBC (Bld) 12.5 % Critically high 1.7-12.0 [facility] Comment on above: Performed By: #### C BC #### [facility] [address] [place] [address] Dr. Joselito Sauceda NEUT # 4.6 103/ul Normal 1.4-6.5 [facility] Comment on above: Performed By: #### C BC #### [facility] [address] [address] [address] Joselito Sauceda Neutrophils/100 WBC (Bld) 62.7 % Normal 43.0-75.0 [facility] Comment on above: Performed By: #### C BC #### [facility] [address] [address] [address] Joselito Sauceda Platelet mean volume (Bld) [Entitic vol] 9.5 fL Normal 9.5-13.5 [facility] Comment on above: Performed By: #### C BC #### [facility] [address] [address] [address] Joselito Sauceda PLT 187 103/ul Normal 150-450 [facility] Comment on above: Performed By: #### C BC #### [facility] [address] [place] [address] Dr. Joselito Sauceda RBC 3.85 106/ul Critically low 4.70-6.10 [facility] Comment on above: Performed By: #### C BC #### [facility] [address] [place] [address] Dr. Joselito Sauceda WBC 7.4 103/ul Normal 4.0-11.0 [facility] Comment on above: Performed By: #### C BC #### [facility] [address] [place] [address] Dr. Joselito Sauceda LIPID PROFILEon 10-28-2021 CHOL-HDL RATIO NORM SEE BELOW Normal [facility] Comment on above: Result Comment: 3.3 - 4.4 LOW RISK 4.4 - 7.1 AVERAGE RISK 7.1 - 11.0 MODERATE RISK >11.0 HIGH RISK Performed By: #### B MP, LIPID #### [facility] [address] [place] [address] Dr. Joselito Sauceda Cholesterol [Mass/Vol] 227 mg/dL Critically high <=200 [facility] Comment on above: Performed By: #### B MP, LIPID #### [facility] [address] [place] [address] Dr. Joselito Sauceda Cholesterol in HDL [Mass/Vol] 66 mg/dL Critically high 40-60 [facility] Comment on above: Performed By: #### B MP, LIPID #### [facility] [address] [address] [address] Joselito Sauceda Cholesterol in LDL [Mass/Vol] 141.6 mg/dL Normal [facility] Comment on above: Performed By: #### B MP, LIPID #### [facility] [address] [address] [address] Joselito Sauceda Cholesterol.total/Cho lesterol in HDL [Mass ratio] 3.4 {ratio} Normal [facility] Comment on above: Performed By: #### B MP, LIPID #### [facility] [address] [place] [address] Dr. Joselito Sauceda HDL NORMAL > or = 60 mg/dl - LOW CARDIOVASCULAR RISK <40 mg/dl - HIGH CARDIOVASCULAR RISK Normal [facility] Comment on above: Performed By: #### B MP, LIPID #### [facility] [address] [place] [address] Dr. Joselito Sauceda LDL CALC NORMAL SEE BELOW Normal [facility] Comment on above: Result Comment: <100 mg/dl OPTIMAL 100 - 129 mg/dl NEAR OR ABOVE OPTIMAL 130 - 159 mg/dl BORDERLINE HIGH 160 - 189 mg/dl HIGH >190 mg/dl VERY HIGH Performed By: #### B MP, LIPID #### [facility] [address] [place] [address] Dr. Joselito Sauceda Triglyceride [Mass/Vol] 97 mg/dL Normal <=150 [facility] Comment on above: Performed By: #### B MP, LIPID #### [facility] [address] [place] [address] Dr. Joselito Sauceda VLDL CALC 19.4 mg/dL Normal [facility] Comment on above: Performed By: #### B MP, LIPID #### [facility] [address] [place] [address] Dr. Joselito Sauceda PROF CHEM 8 (BAS METB)on Anion gap [Moles/Vol] 13.0 mmol/L Normal [facility] Comment on above: Performed By: #### B MP, LIPID #### [facility] [address] [address] [address] Joselito Sauceda Calcium [Mass/Vol] 8.8 mg/dL Normal 8.5-10.1 [facility] Comment on above: Performed By: #### B MP, LIPID #### [facility] [address] [place] [address] Dr. Joselito Sauceda Chloride [Moles/Vol] 103 mmol/L Normal 98-107 [facility] Comment on above: Performed By: #### B MP, LIPID #### [facility] [address] [place] [address] Dr. Joseliot Sauceda CO2 [Moles/Vol] 26.0 mmol/L Normal 22.0-30.0 [facility] Comment on above: Performed By: #### B MP, LIPID #### [facility] Laboratory [address] [place] [address] Dr. Joselito Sauceda Creatinine [Mass/Vol] 0.75 mg/dL Normal 0.66-1.25 [facility] Comment on above: Performed By: #### B MP, LIPID #### [facility] [address] [place] [address] Dr. Joselito Sauceda EGFR-AF NIUEAN >60 Normal >=60 [facility] Comment on above: Performed By: #### B MP, LIPID #### [facility] [address] [place] [address] Dr. Joselito Sauceda EGFR-NON AF NIUEAN >60 Normal >=60 [facility] Comment on above: Performed By: #### B MP, LIPID #### [facility] [address] [place] [address] Dr. Joselito Sauceda Glucose [Mass/Vol] 139 mg/dL Critically high 74-106 [facility] Comment on above: Performed By: #### B MP, LIPID #### [facility] [address] [place] [address] Dr. Joselito Sauceda Potassium [Moles/Vol] 4.0 mmol/L Normal 3.4-5.0 [facility] Comment on above: Performed By: #### B MP, LIPID #### [facility] [address] [address] [address] Joselito Sauceda Sodium [Moles/Vol] 138 mmol/L Normal 137-145 [facility] Comment on above: Performed By: #### B MP, LIPID #### [facility] [address] [address] [address] Joselito Sauceda Urea nitrogen [Mass/Vol] 11.0 mg/dL Normal 7.0-18.0 [facility] Comment on above: Performed By: #### B MP, LIPID #### [facility] [address] [address] [address] Joselito Sauceda Urea nitrogen/Creatinine [Mass ratio] 14.7 mg/mg Normal [facility] Comment on above: Performed By: #### B MP, LIPID #### [facility] [address] [address] [address] Joselito Sauceda Vital Signs Date Time Vital Sign Value Performing Clinician Facility 01-09-2025 14:56-0400 Body height 162.56 cm Evans Ball DO Work Phone: [facility] 01-09-2025 14:56-0400 Body mass index (BMI) [Ratio] 24.5 kg/m2 Evans Ball DO Work Phone: [facility] 01-09-2025 14:56-0400 Body temperature 97.4 [degF] Evans Ball DO Work Phone: [facility] 01-09-2025 14:56-0400 Body weight 64.86 kg Evans Ball DO Work Phone: [facility] 01-09-2025 14:56-0400 Diastolic blood pressure 73 mm[Hg] Evans Ball DO Work Phone: [facility] 01-09-2025 14:56-0400 Heart rate 72 /min Evans Ball DO Work Phone: [facility] 01-09-2025 14:56-0400 Respiratory rate 18 /min Evans Ball DO Work Phone: [facility] 01-09-2025 14:56-0400 SaO2% (BldA) [Mass fraction] 96 % Evans Ball DO Work Phone: [facility] 01-09-2025 14:56-0400 Systolic blood pressure 133 mm[Hg] Evans Ball DO Work Phone: [facility] 12-29-2024 09:02-0400 Body height 162.56 cm Evans Ball DO Work Phone: [facility] 12-29-2024 09:02-0400 Body mass index (BMI) [Ratio] 24.5 kg/m2 Evans Ball DO Work Phone: [facility] 12-29-2024 09:02-0400 Body weight 64.86 kg Evans Ball DO Work Phone: [facility] 12-29-2024 09:02-0400 Diastolic blood pressure 86 mm[Hg] Evans Ball DO Work Phone: [facility] 12-29-2024 09:02-0400 Heart rate 77 /min Evans Ball DO Work Phone: [facility] 12-29-2024 09:02-0400 Respiratory rate 12 /min Evans Ball DO Work Phone: [facility] 12-29-2024 09:02-0400 Systolic blood pressure 132 mm[Hg] Evans Ball DO Work Phone: [facility] 04-28-2024 09:34-0400 Body height 162.56 cm [facility] 04-28-2024 09:34-0400 Body mass index (BMI) [Ratio] 24.9 kg/m2 [facility] 04-28-2024 09:34-0400 Body weight 65.94 kg [facility] 04-28-2024 09:34-0400 Diastolic blood pressure 86 mm[Hg] [facility] 04-28-2024 09:34-0400 Heart rate 71 /min [facility] 04-28-2024 09:34-0400 Respiratory rate 12 /min [facility] 04-28-2024 09:34-0400 Systolic blood pressure 121 mm[Hg] [facility] 10-25-2023 11:29-0400 Body height 162.56 cm DO Evans Ball Work Phone: [facility] 10-25-2023 11:29-0400 Body mass index (BMI) [Ratio] 24.7 kg/m2 DO Evans Ball Work Phone: [facility] 10-25-2023 11:29-0400 Body weight 65.48 kg DO Evans Ball Work Phone: [facility] 10-25-2023 11:29-0400 Diastolic blood pressure 75 mm[Hg] DO Evans Ball Work Phone: [facility] 10-25-2023 11:29-0400 Heart rate 67 /min DO Evans Ball Work Phone: [facility] 10-25-2023 11:29-0400 Respiratory rate 12 /min DO Evans Ball Work Phone: [facility] 10-25-2023 11:29-0400 Systolic blood pressure 115 mm[Hg] DO Evans Ball Work Phone: [facility] 09-05-2023 15:08-0500 Body height 162.56 cm [facility] 09-05-2023 15:08-0500 Body mass index (BMI) [Ratio] 24.3 kg/m2 [facility] 09-05-2023 15:08-0500 Body weight 64.41 kg [facility] 09-05-2023 15:08-0500 Diastolic blood pressure 72 mm[Hg] [facility] 09-05-2023 15:08-0500 Heart rate 69 /min [facility] 09-05-2023 15:08-0500 Respiratory rate 12 /min [facility] 09-05-2023 15:08-0500 Systolic blood pressure 117 mm[Hg] [facility] 08-17-2023 11:30-0500 Body height 162.56 cm Evans Ball Other [facility] 08-17-2023 11:30-0500 Body mass index (BMI) [Ratio] 24.51 kg/m2 Evans Conteh Other [facility] [employer] Other 08-17-2023 11:30-0500 Body weight 64.77 kg Evans Conteh Other [facility] 08-17-2023 11:30-0500 Diastolic blood pressure 76 mm[Hg] Evans Conteh Other [facility] 08-17-2023 11:30-0500 Respiratory rate 12 /min Evans Conteh Other [facility] [employer] Other 08-17-2023 11:30-0500 Systolic blood pressure 123 mm[Hg] Evans Conteh Other [facility] Encounters Encounter Date Encounter Type Care Provider Facility Start: 01-21-2025 ambulatory Aime ROA Facility :[facility] Start: 01-09-2025 End: 01-09-2025 Departed Referred Nimisha Rosales [facility] -[facility] Work Phone: Start: 01-09-2025 End: 01-09-2025 ambulatory Evans Conteh DO Work Phone: [facility] Work Phone: Start: 01-09-2025 End: 01-09-2025 Patient encounter procedure Nimisha Rosales [facility] Work Phone: Start: 12-29-2024 ambulatory Aime GRAYSONL Facility:[facility] Start: 12-29-2024 End: 12-29-2024 Patient encounter procedure Evans Conteh DO -[facility] Work Phone: Start: 12-26-2024 Patient encounter procedure Evans Terrence DO Work Phone: [facility] Start: 04-28-2024 End: 04-28-2024 ambulatory [facility] Work Phone: Start: 04-28-2024 End: 04-28-2024 Patient encounter procedure [facility] Work Phone: Start: 10-25-2023 End: 10-25-2023 ambulatory DO Evans Ball Work Phone: [facility] Work Phone: Start: 10-25-2023 End: 10-25-2023 Patient encounter procedure DO Evans Ball Work Phone: [facility] Work Phone: Start: 10-08-2023 End: 10-08-2023 ambulatory DO Evans Ball Work Phone: [facility] Work Phone: Start: 10-08-2023 End: 10-08-2023 Patient encounter procedure DO Evans Ball Work Phone: [facility] Work Phone: Start: 10-08-2023 End: 10-08-2023 ambulatory DO Evans Ball Work Phone: [facility] Work Phone: Start: 10-08-2023 End: 10-08-2023 Patient encounter procedure DO Evans Ball Work Phone: [facility] Start: 09-07-2023 Non-patient / Non-visit DO Saurabh neelima Ball Work Phone: [facility] Work Phone: Start: 09-05-2023 End: 09-05-2023 ambulatory [facility] Work Phone: Start: 09-05-2023 End: 09-05-2023 Patient encounter procedure [facility] Work Phone: Start: 08-30-2023 Non-patient / Non-visit [facility] Work Phone: Start: 08-17-2023 End: 08-17-2023 ambulatory Evans Conteh Other [facility] [employer] Other Start: 08-17-2023 Patient encounter procedure Evans Conteh [facility] Start: 08-17-2023 Telephone encounter Evans Conteh [facility] Start: 08-17-2023 End: 08-17-2023 Patient encounter procedure [facility]- Start: 02-02-2022 End: 02-03-[address] EVANS CONTEH Facility:[facility] Start: 11-02-2021 End: 11-03-[address] EVANS CONTEH Facility:[facility] Start: 10-28-2021 End: 10-29-[address] EVANS CONTEH Facility:[facility] Start: 06-07-2021 End: 06-08-2021 ambulatory IMMANUEL SOTELO Facility:[facility] Procedures Date Procedure Procedure Detail Performing Clinician Start: 10-08-2023 Plain X-ray of right hand DO Evans Conteh Work Phone: Start: 10-28-[address] TOMPKINS [facility] Comment on above: Performed By: #### P [facility] #### [facility] [address] [place] [address] Dr. Joselito Sauceda Plan of Treatment Date Care Activity Detail Author Start: 01-09-2025 [facility] Start: 01-09-2025 Aerobic Culture Aerobic Culture [facility] Start: 01-09-2025 Anaerobic Culture Anaerobic Culture [facility] Start: 01-09-2025 Microscopic observat ion [Identifier] in Unspecified specimen by Gram stain [facility] Start: 12-29-2024 Patient referral [facility] Work Phone: Start: 10-08-2023 Plain X-ray of right hand XR hand RT min 3V* [facility] Start: 10-08-2023 XR Hand - right GE 3 Views [facility] Bacteria identified in Unspecified specimen by Aerobe culture [facility] Bacteria identified in Unspecified specimen by Anaerobe culture [facility] Patient referral [facility] Work Phone: Extremity [facility] Extremity [facility] US Upper extremity a rtery - right [facility] Immunizations Immunization Date Immunization Notes Care Provider Aniket franks 02-07-2022 Prevnar 20 Evans Conteh Other [facility] 10-19-2020 COVID-19 Vaccine Pfi zer - Documentation Purposes Only Evans Conteh Other [facility] 09-27-2020 COVID-19 Vaccine Pfi zer - Documentation Purposes Only Evans Conteh Other [facility] 06-16-2020 influenza virus vaccine, split virus (incl. purified surface antigen) Evans Conteh Other [employer] Other 06-16-2020 influenza virus vaccine, unspecified formulation [facility] Payers Date Payer Category Payer Medicare [id number] 1961 Self-pay 1955 Unknown [id number] [id number] [id number] 1955 Unknown [id number] [id number] [id number] 1955 Unknown [id number] [id number] [id number] 1955 Unknown [id number] [id number] Unknown [id number] [id number] [id number] Unknown Sheela BC/BS [id number] Unknown [id number] [id number] Social History Date Type Detail Facility Sex Assigned At [facility] [employer] Other Start: 09-05-2023 End: 09-05-2023 Tobacco smoking status NHIS Smoker (finding) [facility] Start: 1955 Sex Assigned At Male F [facility] Start: 01-09-2025 Tobacco smoking stat us NHIS Smokes tobacco daily (finding) [facility] Sex Male (finding) [facility] Evaluation note 12-29-2024 Note Date & Type Note Facility 12-29-2024 Evaluation note Diagnosis Onset Date Resolution Chronic bronchitis acute December 142024 8:54am Colon cancer screening acute [facility] 2024 8:54am Hypercholesterolemia acute December 29, 2024 8:54am Medicare annual wellness visit, subsequent acute December 29 8:54am Nicotine addiction acute December 142024 8:54am Screening PSA (prostate specific antigen) acute December 29 8:54am [facility] Work Phone: Evaluation note 12-29-2024 Note Date & Type Note Facility 12-29-2024 Evaluation note Diagnosis Onset Date Resolution Chronic bronchitis acute December 142024 8:54am Colon cancer screening acute [facility] 2024 8:54am Hypercholesterolemia acute December 29, 2024 8:54am Medicare annual wellness visit, subsequent acute December 29 8:54am Nicotine addiction acute December 142024 8:54am Screening PSA (prostate specific antigen) acute December 29 8:54am Olecranon bursitis, left elbow acute January 09, 2025 2:28pm [facility] Work Phone: Evaluation note 08-17-2023 Note Date & Type [...] or hematochezia. He denies heartburn or dysphagia [facility] [employer] Other Evaluation note Note Date & Type Note Facility Evaluation note No Information [facility] [employer] Other Evaluation note Note Date & Type Note Facility Evaluation note Diagnosis Onset Date Cigarette nicotine dependence, uncomplicated acute Palpable mass of soft tissue of wrist acute [facility] Work Phone: Evaluation note Note Date & Type Note Facility Evaluation note Diagnosis Onset Date Cigarette nicotine dependence, uncomplicated acute Palpable mass of soft tissue of wrist acute Arthritis of right wrist acu te Pain in right wrist acute Palpable mass of soft tissue of wrist acute [facility] Work Phone: Evaluation note Note Date & Type Note Facility Evaluation note Diagnosis Onset Date Cigarette nicotine dependence, uncomplicated acute Palpable mass of soft tissue of wrist acute Arthritis of right wrist acu te Pain in right wrist acute Palpable mass of soft tissue of wrist acute Anemia acute Cigarette nicotine dependence, uncomplicated acute Elevated cholesterol acute [facility] Work Phone: Evaluation note Note Date & Type Note Facility Evaluation note No assessment information availa ble [facility] Work Phone: History general Narrative - Reported [...] Knee 09/11/2017 Hospitalization History see surgical history [facility] Other Summary Purpose Family History No Family History Records FoundNo Family History Records FoundNo Family History Records Found Advance Directives No Advanced Directives Records Found Advance Directive Response Recorded Date/ Time Advance Directives No August 2:45pm Advance Directive Response Recorded Date/ Time Advance Directives No August 3:45pm Chief Complaint and Reason for Visit Chief Complaint Wellness- Possible U ri - Over It Now Bump on Wrist Reason for Visit Cigarette nicotine d ependence, uncomplicated Palpable mass of soft tissue of wrist Chief Complaint Wellness- Possible U ri - Over It Now Bump on Wrist Amb Documentation M79.[address] TERRENCE BRYANT, RT WRIST Reason for Visit Cigarette nicotine d ependence, uncomplicated Palpable mass of soft tissue of wrist Arthritis of right wrist Pain in right wrist Palpable mass of soft tissue of wrist Chief Complaint Wellness- Possible U ri - Over It Now Bump on Wrist Amb Documentation M79.[address] TERRENCE BRYANT, RT WRIST Discussion about labs Reason for Visit Cigarette nicotine d ependence, uncomplicated Palpable mass of soft tissue of wrist Arthritis of right wrist Pain in right wrist Palpable mass of soft tissue of wrist Anemia Cigarette nicotine dependence, uncomplicated Elevated cholesterol Chief Complaint Dicuss Results/Meds Chief Complaint Admit Date Bump above L Ear December 29, 2024 8:54 am Left elbow swelling January 09, 2025 2:28 pm Reason for Visit Admit Date Chronic bronchitis December 29, 2024 8:54 am Colon cancer screening December 29, 2024 8 :54am Hypercholesterolemia December 29, 2024 8:5 4am Medicare annual wellness visit, rosalindae nt December 29, 2024 8:54am Nicotine addiction December 29, 2024 8:54 am Screening PSA (prostate specific antigen ) December 29, 2024 8:54am Reason for Visit Admit Date Chronic bronchitis December 29, 2024 8:54 am Colon cancer screening December 29, 2024 8 :54am Hypercholesterolemia December 29, 2024 8:5 4am Medicare annual wellness visit, subseque nt December 29, 2024 8:54am Nicotine addiction December 29, 2024 8:54 am Screening PSA (prostate specific antigen ) December 29, 2024 8:54am Olecranon bursitis, left elbow December 2:28pm Additional Source Comments (unrecognized sect ion and content) No Status Records FoundNo Status Records FoundNo Status Records Found INFORMATION SOURCE (unrecogn ized section and content) DATE CREATED AUTHOR 02/08/2022 [facility] DATE CREATED AUTHOR AUTHOR'S ORGANIZ ATION 01/06/2025 Granda Fernandez [facility] DATE CREATED AUTHOR AUTHOR'S ORGANIZ ATION 01/11/2025 [facility] REASON FOR VISIT (unrecogniz ed section and content) Wellness- possible URI - ove r it nowLDCT Care Teams (unrecognized sec tion and content) Team Status: Active Member Role Status Kelley Conteh DO Primary Care Provider Active Team Status: Inactive Member Role Status Kelley Conteh DO Attending Provider Active Sta rt: August 17, 2023 End: August 17, 2023 Team Status: Active Member Role Status Kelley Conteh DO Primary Care Provide r, Attending Provider Active Start: August 30, 2023 Team Status: Inactive Member Role Status Kelley Conteh DO Primary Care Provide r, Attending Provider Active Start: September 05, 2023 End: September 05, 2023 Team Status: Active Member Role Status Kelley Conteh DO Primary Care Provider Active Start: September 07, 2023 BRENNAN Heller Attending Provider Active St art: September 07, 2023 Team Status: Active Member Role Status Kelley Conteh DO Primary Care Provider Active Start: October 08, 2023 Scot Garnett DO Attending Provider Active St art: October 08, 2023 Team Status: Inactive Member Role Status Kelley Conteh DO Primary Care Provider Active Start: October 08, 2023 End: October 08, 2023 Scot Garnett DO Attending Provider Active St art: October 08, 2023 End: October 08, 2023 Team Status: Inactive Member Role Status Dates Evans Conteh DO Primary Care Provide r, Attending Provider Active Start: October 25, 2023 End: October 25, 2023 Team Status: Inactive Member Role Status Dates Evans Conteh , DO Primary Care Provide r, Attending Provider Active Start: April 28, 2024 End: April 28, 2024 Team Status: Inactive Member Role Status Dates Eavns Conteh , DO Primary Care Provider Active Start: December 29, 2024 End: December 29, 2024 Evans Conteh , Attending Provider Active Sta rt: December 29, 2024 End: December 29, 2024 Team Status: Inactive Member Role Status Dates Evans Conteh , Primary Care Provider Active Start: January 09, 2025 End: January 09, 2025 Nimisha Garnett APRN Attending Provider Active Start: January 09, 2025 End: January 09, 2025 Team Status: Inactive Member Role Status Dates Nimisha Garnett APRN Attending Provider Active Start: January 09, 2025 End: January 09, 2025 Goals (unrecognized section and content) Goals may [...] BE BASED ON THE PRIMARY CLINICAL RECORDS. [employer] provides no warranty or guarantee of the accuracy or completeness of information in this document.
[2025-01-11 09:46] LABS: Anisocytosis 1+; Eosinophils Absolute Manual 0.16 10^3/uL (0.00-0.70); Lymphocytes Absolute Manual 2.97 10^3/uL (1.20-3.80); Macrocytosis 1+; Monocytes Absolute Manual 1.81 10^3/uL (0.30-0.80); Segmented Neut Absolute Manual 11.55 10^3/uL (1.4-6.5)
[2025-01-11] MEDS: VANCOMYCIN HCL 1,000 MG in 0.9 % SODIUM CHLORIDE 250 ML 250 MG IV (10:20)
[2025-01-11] MEDS: LIDOCAINE HCL 1% 100 MG/10 ML MDV INJ (10:35)
[2025-01-11 11:53] VITALS: BP 122/80; PULSE 81; O2SAT 98
== END 2025-01-11 11:54 | disposition home or self-care (01) ==
PROVIDERS: Emergency Provider Emergency Medicine; PCP Internal Medicine
DX: M71.522 Other bursitis, not elsewhere classified, left elbow (principal)
CPT/HCPCS: 20605; 36415; 73080; 80048; 85007; 85027; 85652; 87070; 89051; 96365; 99283; J3370

== ENCOUNTER 2025-01-18 06:41 | Emergency (ER) | payer MEDICARE, SELFPAY ==
[2025-01-18 06:42] VITALS: BP 131/76; PULSE 75; TEMP 36.9; O2SAT 97; BMI 24.5
--- OUTSIDE RECORDS SUMMARY | 2025-01-18 06:48 | XMS_ITS | CCD ---
Author Organization [facility] Care Team Providers Care Teacher Of The Visually Impaired Name Role Phone TERRENCE, DR KRUEGER Admitting Unavailable TERRENCE, DR KRUEGER Attending Unavailable TERRENCE, DR KRUEGER Primary Care Unavailable TERRENCE, DR KRUEGER Consulting Unavailable TERRENCE, DR KRUEGER Admitting Unavailable TERRENCE, DR KRUEGER Attending Unavailable BALL, DR KRUEGER Primary Care Unavailable BALL, DR KRUEGER Consulting Unavailable ASHLEIGH, IMMANUEL KATZ Admitting Unavailable ASHLEIGH, IMMANUEL KATZ Attending Unavailable TERRENCE, DR KRUEGER Primary Care Unavailable ASHLEIGH, IMMANUEL KATZ Consulting Unavailable TERRENCE, DR KRUEGER Admitting Unavailable TERRENCE, DR KRUEGER Attending Unavailable TERRENCE, DR KRUEGER Primary Care Unavailable TERRENCE, DR KRUEGER Consulting Unavailable Evans Conteh Unavailable DO Evans Conteh Primary Care Provider DO Scot Garnett Attending Provider [phone] Evans Conteh DO Primary Care Provider Evans Conteh DO Attending Provider Nimisha Garnett APRN Attending Provider Joe Mo DO Attending Provider [phone] Thomas Mcwilliams DO Attending Provider [phone] Joe Mo Attending Unavailable Joe Mo Admitting Unavailable Nimisha Garnett Admitting Unavailable Nimisha Garnett Attending Unavailable Aime ROA Attending Unavailable EVANS CONTEH Referring Unavailable Allergies Allergy Classification Reported Allergen(s) Allergy Type Date of Onset Reaction(s) Facility (1 source) No Known Medication Allergies; Translations: [No Known Medication Allergies] Propensity to adverse reactions (disorder) [facility] Repository Medications Current Medications Medication Drug Class(es) Dates Sig (Normalized) Sig (Original) amoxicillin 875 mg / clavulanate 125 mg oral tablet (2 sources) Penicillin-class Antibacterial Start: 08-17-2023 take 1 tablet by mouth every twelve hours Amoxicillin-Pot Clavulanate 875-125 MG 1 tablet Orally every 12 hrs for 7 days Aug, Active Chantix Continuing Month Colt (2 sources) Chantix Continuing Month Colt Active sulfamethoxazole 800 mg / trimethoprim 160 mg oral tablet (3 sources) Dihydrofolate Reductase Inhibitor Antibacterial, Sulfonamide Antimicrobial Start: 01-12-2025 End: 01-14-2025 take 1 tablet by mouth every twelve hours Sulfamethoxazole -Trimethoprim 800-160 mg tablet Active 1 TAB PO Every 12 hours 14 January 14, 2025 8:33am Complies with drug therapy Completed/Discontinued Medications Medication Drug Class(es) Dates Sig (Normalized) Sig (Original) atorvastatin 20 mg oral tablet (16 sources) HMG-CoA Reductase Inhibitor Start: 01-09-2025 End: 01-12-2025 take 1 tablet by mouth once daily Atorvastatin 20 mg tablet Discontinued 20 MG PO Daily January 09, 2025 12:00am January 12, 2025 1:21pm Start: 05-23-2024 End: 12-29-2024 Atorvastatin 20 mg [...] 23, 2024 8:21am Chantix Continuing Month Colt 1MG (2 sources) Start: 07-23-2019 take 1 tablet by mouth once, then take 1 tablet by mouth twice daily Chantix Continuing Month Colt 1MG Chantix Continuing Month Colt 1MG, 1 (one) Tablet Tablet two times daily # 56, 07/23/2019, Ref. x1. Active Oral two times daily for 28 Begin after completing starter colt *Reorder from [email or web address] for eRx and Interaction Alerts* Jul, Not-Taking/PRN meloxicam 15 mg oral tablet (11 sources) Nonsteroidal Anti-inflammatory Drug Start: 08-09-2024 take 1 tablet by mouth once daily as needed Start: 04-28-2024 End: 08-09-2024 take 1 tablet by mouth once daily Meloxicam 15 mg tablet Discontinued 15 MG PO Daily April 28, 2024 12:00am August 09, 2024 8:40am varenicline 1 mg oral tablet (10 sources) Partial Cholinergic Nicotinic Agonist Start: 09-05-2023 [...] Onset: 11-03-2021 Chronic Disorders of lipid metabolism (16 sources) Pure hypercholesterolemia, unspecified; Translations: [Pure hypercholesterolemia] [...] hand] 10-05-2023 Episodic Other connective tissue disease (12 sources) Bursitis of olecranon of left elbow; [...] [Acute recurrent maxillary sinusitis] Episodic Substance-related disorders (20 sources) Tobacco user; Translations: [Nicotine dependence, cigarettes, uncomplicated] Chronic Unclassified (10 sources) Patient encounter status; Translations: [Z12.11 - [...] Test Name Value Interpretation Reference Range Facility Anisocytosis LM Ql (Bld)Orde red By: Joe Mo on 01-11-2025 Anisocytosis Ql (Bld) 1+ [facility] Basophils/100 WBC Manual cnt (Bld)Ordered By: Joe Mo on 01-11-2025 Basophils/100 WBC (Bld) 0.0 % Low 0.2-2.0 [facility] Body fluid differential cell countOrdered By: Joe Mo on 01-11-2025 Differential panel (Body fld) 2 % [facility] Comment on above: The reference interv al and other method performance specifications have not been established for this body fluid. The test result must be integrated into the clinical context for interpretation. Cell Count/Diff, Fluidon Appearance, Fluid Turbid Normal The [facility] Comment on above: Order Comment: Body Fluid Source: Other (Name in the Site) Body Fluid Site: LEFT ELBOW FLUID Result Comment: The reference interval and other method performance specifications have not been established for this body fluid. The test result must be integrated into the clinical context for interpretation. Performed By: #### F LCCDIFF #### [facility] [address] [place] [address] [place] Color, Fluid Straw Normal The [facility] Comment on above: Order Comment: Body Fluid Source: Other (Name in the Site) Body Fluid Site: LEFT ELBOW FLUID Result Comment: The reference interval and other method performance specifications have not been established for this body fluid. The test result must be integrated into the clinical context for interpretation. Performed By: #### F LCCDIFF #### [place] [address] [place] Color, Fluid Supernatant Straw Normal [facility] Comment on above: Order Comment: Body Fluid Source: Other (Name in the Site) Body Fluid Site: LEFT ELBOW FLUID Result Comment: The reference interval and other method performance specifications have not been established for this body fluid. The test result must be integrated into the clinical context for interpretation. Performed By: #### F LCCDIFF #### [facility] [address] [place] [address] [place] Eosinophils, Fluid 0 /100{WBC} Normal 0-3 [facility] Comment on above: Order Comment: Body Fluid Source: Other (Name in the Site) Body Fluid Site: LEFT ELBOW FLUID Result Comment: PERF ORMED BY: [facility] [address] [place] [address] PATHOLOGIST SPARERIBS TRIMMER DARY GONZALES M.D. Performed By: #### F LCCDIFF #### [facility] [address] Lymphocytes, Fluid 1 % Normal [facility] Comment on above: Order Comment: Body Fluid Source: Other (Name in the Site) Body Fluid Site: LEFT ELBOW FLUID Result Comment: The reference interval and other method performance specifications have not been established for this body fluid. The test result must be integrated into the clinical context for interpretation. Performed By: #### F LCCDIFF #### [facility] [address] Monocytes/Macrophages, Fluid 2 % Normal [facility] Comment on above: Order Comment: Body Fluid Source: Other (Name in the Site) Body Fluid Site: LEFT ELBOW FLUID Result Comment: The reference interval and other method performance specifications have not been established for this body fluid. The test result must be integrated into the clinical context for interpretation. Performed By: #### F LCCDIFF #### [address] Neutrophil, Fluid 97 % Normal [facility] Comment on above: Order Comment: Body Fluid Source: Other (Name in the Site) Body Fluid Site: LEFT ELBOW FLUID Result Comment: The reference interval and other method performance specifications have not been established for this body fluid. The test result must be integrated into the clinical context for interpretation. Performed By: #### F LCCDIFF #### [facility] [address] [place] [id number] [facility] RBC, Fluid 3425 /uL Normal [facility] Comment on above: Order Comment: Body Fluid Source: Other (Name in the Site) Body Fluid Site: LEFT ELBOW FLUID Result Comment: Body fluid is partially clotted and/or cell clumps or debris are present. Fluid cell count and differential results may not be reliable. Clinical correlation is recommended. --- 01/11/25 1527 --- RBC previously reported as: /uL Body fluid is partially clotted and/or cell clumps or debris are present. Fluid cell count and differential results may not be reliable. Clinical correlation is recommended. The reference interval and other method performance specifications have not been established for this body fluid. The test result must be integrated into the clinical context for interpretation. Performed By: #### F LCCDIFF #### [facility] [address] [place] [address] [facility] TNC, Body Fluid 52491 /uL Normal The [facility] Comment on above: Order Comment: Body Fluid Source: Other (Name in the Site) Body Fluid Site: LEFT ELBOW FLUID Result Comment: Body fluid is partially clotted and/or cell clumps or debris are present. Fluid cell count and differential results may not be reliable. Clinical correlation is recommended. --- 01/11/25 1526 --- Nucleated Cells previously reported as: /uL Body fluid is partially clotted and/or cell clumps or debris are present. Fluid cell count and differential results may not be reliable. Clinical correlation is recommended. The reference interval and other method performance specifications have not been established for this body fluid. The test result must be integrated into the clinical context for interpretation. Performed By: #### F LCCDIFF #### [facility] [address] [place] [id number] [facility] Color of Spun Body fluidOrde red By: Joe Mo on 01-11-2025 Color (Spun body fld) [facility] Comment on above: The reference interv al and other method performance specifications have not been established for this body fluid. The test result must be integrated into the clinical context for interpretation. Determination of appearance of body fluidOrdered By: Joe Mo on 01-11-2025 Appearance (Body fld) Turbid [facility] Comment on above: The reference interv al and other method performance specifications have not been established for this body fluid. The test result must be integrated into the clinical context for interpretation. Eosinophils/100 WBC Manual c nt (Bld)Ordered By: Joe Mo on 01-11-2025 Eosinophils/100 WBC (Bld) 1.0 % 0.9-7.0 [facility] Erythrocyte distribution wid th Auto (RBC) [Ratio]Ordered By: Joe Mo on 01-11-2025 Erythrocyte distribution width (RBC) [Ratio] 12.8 % 11.0-15.0 [facility] Evaluation of color of body fluidOrdered By: Joe Mo on 01-11-2025 Color (Body fld) [facility] [place] [facility] Comment on above: The reference interv al and other method performance specifications have not been established for this body fluid. The test result must be integrated into the clinical context for interpretation. Hematocrit Auto (Bld) [Volum e fraction]Ordered By: Joe Mo on 01-11-2025 Hematocrit (Bld) [Volume fraction] 38.6 % Low 42.0-54.0 [facility] Hemoglobin [Mass/volume] in BloodOrdered By: Joe Mo on 01-11-2025 Hemoglobin (Bld) [Mass/Vol] 13.3 g/dL Low 14.0-18.0 [facility] Laboratory - Hematology and Cell countsOrdered By: Joe Mo on 01-11-2025 Lymphocytes/100 WBC (Bld) 18.0 % Low 20.5-60.0 [facility] Monocytes/100 WBC (Bld) 11.0 % 1.7-12.0 [facility] Leukocytes [#/volume] correc travis for nucleated erythrocytes in Blood by Automated counOrdered By: Joe Mo on 01-11-2025 WBC corrected for nucl RBC Auto (Bld) [#/Vol] 16.5 10 3/uL High 4.0-11.0 [facility] MCH Auto (RBC) [Entitic mass ]Ordered By: Joe Mo on 01-11-2025 MCH (RBC) [Entitic mass] 34.5 pg High 25.9-34.0 [facility] MCHC Auto (RBC) [Mass/Vol]Or dered By: Joe Mo on 01-11-2025 MCHC (RBC) [Mass/Vol] 34.5 g/dL 29.9-35.2 [facility] MCV Auto (RBC) [Entitic vol] Ordered By: Joe Mo on 01-11-2025 MCV (RBC) [Entitic vol] 100.0 fL High 80.0-94.0 [facility] Macrocytes LM Ql (Bld)Ordere d By: Joe Mo on 01-11-2025 Macrocytes Ql (Bld) 1+ [facility] Manual body fluid eosinophil s/100 leukocytesOrdered By: Joe Mo on 01-11-2025 Eosinophils/100 WBC Manual cnt (Body fld) 0 /100{WBC} 0-3 [facility] Manual body fluid erythrocyt es count (number/volume)Ordered By: Joe Mo on 01-11-2025 RBC Manual cnt (Body fld) [#/Vol] 3425 /uL [facility] Comment on above: Body fluid is partia lly clotted and/or cell clumps or debris are present. Fluid cell count and differential results may not be reliable. Clinical correlation is recommended.--- 01/11/25 1527 ---RBC previously reported as: /uLBody fluid is partially clotted and/or cell clumps or debris are present. Fluid cell count and differential results may not be reliable. Clinical correlation is recommended.The reference interval and other method performance specifications have not been established for this body fluid. The test result must be integrated into the clinical context for interpretation. Manual body fluid lymphocyte s/100 leukocytesOrdered By: Joe Mo on 01-11-2025 Lymphocytes/100 WBC Manual cnt (Body fld) 1 % [facility] Comment on above: The reference interv al and other method performance specifications have not been established for this body fluid. The test result must be integrated into the clinical context for interpretation. Neutrophils/100 WBC Manual c nt (Body fld)Ordered By: Joe Mo on 01-11-2025 Neutrophils/100 WBC (Body fld) 97 % [facility] Comment on above: The reference interv al and other method performance specifications have not been established for this body fluid. The test result must be integrated into the clinical context for interpretation. No Panel InformationOrdered By: Joe Mo on 01-11-2025 Absolute Basophils (Manual) 0.00 10 3/uL 0.00-0.10 [facility] Eosinophils # (Manual) 0.16 10 3/uL 0.00-0.70 [facility] Lymphocytes # (Manual) 2.97 10 3/uL 1.20-3.80 [facility] Monocytes # (Manual) 1.81 10 3/uL High 0.30-0.80 [facility] Segmented Neutrophils # (Manual) 11.55 10 3/uL High 1.4-6.5 [facility] Platelet mean volume Auto (B ld) [Entitic vol]Ordered By: Joe Mo on 01-11-2025 Platelet mean volume (Bld) [Entitic vol] 9.5 fL 9.5-13.5 [facility] Platelets Auto (Bld) [#/Vol] Ordered By: Joe Mo on 01-11-2025 Platelets (Bld) [#/Vol] 218 10 3/uL 150-450 [facility] RBC Auto (Bld) [#/Vol]Ordere d By: Joe Mo on 01-11-2025 RBC (Bld) [#/Vol] 3.86 10 6/uL Low 4.70-6.10 [facility] Segmented neutrophils/100 WB C Manual cnt (Bld)Ordered By: Joe Mo on 01-11-2025 Segmented neutrophils/100 WBC (Bld) 70.0 % 43.0-75.0 [facility] Aerobic Cultureon 01-09-2025 Aerobic Culture Olecranon bursitis of left elbow ORGANISM: Staphylococcus aureus (O:STAAUR) Quantity of Growth Light Growth Olecranon bursitis of left elbow No Anaerobes Isolated 3 Days Olecranon bursitis of left elbow Gram Stain Result 1+ White Blood Cells No Bacteria Seen Aerobic SOLITARIO Charge (PCMIC38) ------ SUSCEPTIBILITY ----- ORGANISM: O:STAAUR ANTIBIOTIC INTERPRETATION SOLITARIO Azithromycin S <2 Ceftaroline S <0.5 Ciprofloxacin S <1 Clindamycin S 0.5 Daptomycin S <0.5 Levofloxacin S <1 Linezolid S 2 Oxacillin S <0.25 Penicillin R >2 Tetracycline S <4 Trimethoprim/Sulfam ethoxazole S <0.5 Vancomycin S 1 S = SUSCEPTIBLE I = INTERMEDIATE R = RESISTANT BLANK = DATA NOT AVAILABLE, OR DRUG NOT ADVISABLE OR TESTED R* = RESISTANCE DUE TO EXTENDED SPECTRUM BETA-LACTAMASES ESBL = EXTENDED SPECTRUM BETA-LACTAMASE TFG = THYMIDINE-DEPENDENT STRAIN JUD = BETA-LACTAMASE POSITIVE IB = INDUCIBLE BETA-LACTAMASE. APPEARS IN PLACE OF 'S' WITH SPECIES KNOWN TO POSSESS INDUCIBLE BETA-LACTAMASES. POTENTIALLY THEY MAY BECOME RESISTANT TO ALL B-LACTAM DRUGS. PERFORMED BY: [place] [address] PATHOLOGIST SPARERIBS TRIMMER DARY GONZALES M.D. Normal [facility] Comment on above: Performed By: #### A HEENA, GS #### [address] Aerobic cultureOrdered By: Toan Garnett on 01-09-2025 Bacteria identified Aer cx Nom (Unsp spec) Staphylococcus aureus Abnormal [facility] Anaerobic cultureOrdered By: Nimisha Garnett on 01-09-2025 Bacteria identified Anaer cx Nom (Unsp spec) No Anaerobes Isolated 3 Days [facility] Gram Stainon 01-09-2025 Microscopic observation Gram stain Nom (Unsp spec) Olecranon bursitis of left elbow Gram Stain Result 1+ White Blood Cells No Bacteria Seen PERFORMED BY: [place] [address] PATHOLOGIST SPARERIBS TRIMMER DARY GONZALES M.D. Normal [facility] Comment on above: Performed By: #### A HEENA, GS #### [address] Gram stain microscopyOrdered By: Nimisha Garnett on 01-09-2025 Microscopic observation Gram stain Nom (Unsp spec) [facility] No Panel Informationon 08-30 Prostate Specific Antigen Screen 0.44 ng/mL <=4.00 [facility] CBC AUTO DIFFon 02-02-2022 BASO # 0.1 103/ul Normal 0.0-0.1 [facility] Comment on above: Performed By: #### C BC #### [facility] [address] [place] [address] Dr. Joselito Sauceda Basophils/100 WBC (Bld) 0.8 % Normal 0.2-2.0 [facility] Comment on above: Performed By: #### C BC #### [facility] [address] [place] [address] Dr. Joselito Sauceda EO # 0.2 103/ul Normal 0.0-0.7 [facility] Comment on above: Performed By: #### C BC #### [facility] [address] [place] [address] Dr. Joselito Sauceda Eosinophils/100 WBC (Bld) 2.6 % Normal 0.9-7.0 [facility] Comment on above: Performed By: #### C BC #### [facility] [address] [place] [address] Dr. Joselito Sauceda Erythrocyte distribution width (RBC) [Ratio] 12.7 % Normal 11.0-15.0 [facility] Comment on above: Performed By: #### C BC #### [facility] [address] [place] [address] Dr. Joselito Sauceda Hematocrit (Bld) [Volume fraction] 40.8 % Critically low 42.0-54.0 [facility] Comment on above: Performed By: #### C BC #### [facility] [address] [place] [address] Dr. Joselito Sauceda Hemoglobin (Bld) [Mass/Vol] 14.0 g/dL Normal 14.0-18.0 [facility] Comment on above: Performed By: #### C BC #### [facility] [address] [place] [address] Dr. Joselito Sauceda IG # 0.02 10e3/ul Normal 0.00-0.03 [facility] Comment on above: Performed By: #### C BC #### [facility] [address] [place] [address] Dr. Joselito Sauceda IG % 0.3 % Normal 0.0-0.5 [facility] Comment on above: Performed By: #### C BC #### [facility] [address] [place] [address] Dr. Joselito Sauceda LYMPH # 1.9 103/ul Normal 1.2-3.8 [facility] Comment on above: Performed By: #### C BC #### [facility] [address] [place] [address] Dr. Joselito Sauceda Lymphocytes/100 WBC (Bld) 29.3 % Normal 20.5-60.0 [facility] Comment on above: Performed By: #### C BC #### [facility] [address] [place] [address] Dr. Joselito Sauceda MANUAL DIFF REQ NO Normal [facility] Comment on above: Performed By: #### C BC #### [facility] [address] [place] [address] Dr. Joselito Sauceda MCH (RBC) [Entitic mass] 36.2 pg Critically high 25.9-34.0 [facility] Comment on above: Performed By: #### C BC #### [facility] [address] [place] [address] Dr. Joselito Sauceda MCHC (RBC) [Mass/Vol] 34.3 g/dL Normal 29.9-35.2 [facility] Comment on above: Performed By: #### C BC #### [facility] [address] [place] [address] Dr. Joselito Sauceda MCV (RBC) [Entitic vol] 105.4 fL Critically high 80.0-94 .0 [facility] Comment on above: Performed By: #### C BC #### [facility] [address] [place] [address] Dr. Joselito Sauceda MONO # 0.7 103/ul Normal 0.3-0.8 [facility] Comment on above: Performed By: #### C BC #### [facility] [address] [place] [address] Dr. Joselito Sauceda Monocytes/100 WBC (Bld) 10.0 % Normal 1.7-12.0 [facility] Comment on above: Performed By: #### C BC #### [facility] [address] [place] [address] Dr. Joselito Sauceda NEUT # 3.7 103/ul Normal 1.4-6.5 [facility] Comment on above: Performed By: #### C BC #### [facility] [address] [place] [address] Dr. Joselito Sauceda Neutrophils/100 WBC (Bld) 57.0 % Normal 43.0-75.0 [facility] Comment on above: Performed By: #### C BC #### [facility] [address] [address] [address] Joselito Sauceda Platelet mean volume (Bld) [Entitic vol] 9.7 fL Normal 9.5-13.5 [facility] Comment on above: Performed By: #### C BC #### [facility] [address] [address] [address] Joselito Sauceda PLT 226 103/ul Normal 150-450 [facility] Comment on above: Performed By: #### C BC #### [facility] [address] [address] [address] Joselito Sauceda RBC 3.87 106/ul Critically low 4.70-6.10 [facility] Comment on above: Performed By: #### C BC #### [facility] [address] [address] [address] Joselito Sauceda WBC 6.5 103/ul Normal 4.0-11.0 [facility] Comment on above: Performed By: #### C BC #### [facility] [address] [address] [address] Joselito Sauceda FERRITINon 11-02-2021 Ferritin [Mass/Vol] 622.0 ng/mL Critically high 17.9-464.0 [facility] Comment on above: Performed By: #### F ERR, B12FOL, FETIBC #### [facility] [address] [address] [address] Joselito Sauceda GLYCOHEMOGLOBIN A1Con 2021 ADA RECOMMENDATION ADA THERAPEUTIC TARGET 6.0 - 7.0 ACTION SUGGESTED > 7.0 Normal [facility] Comment on above: Performed By: #### A 1C #### [facility] [address] [address] [address] Joselito Sauceda Glucose [Mass/Vol] 105 mg/dL Normal [facility] Comment on above: Performed By: #### A 1C #### [facility] [address] [address] [address] Joselito Sauceda HbA1c (Bld) [Mass fraction] 5.3 % Normal <=6.0 [facility] Comment on above: Performed By: #### A 1C #### [facility] [address] [place], [place] [address] Dr. Joselito Sauceda IRON AND TIBCon 11-02-2021 % SATURATION 51.0 % Normal [facility] Comment on above: Performed By: #### F ERR, B12FOL, FETIBC #### [facility] [address] [place] [address] Dr. Joselito Sauceda Iron [Mass/Vol] 158.0 ug/dL Normal 49.0-181.0 [facility] Comment on above: Performed By: #### F ERR, B12FOL, FETIBC #### [facility] [address] [place] [address] Dr. Joselito Sauceda TIBC DIRECT 310.0 ug/dL Normal 261.0-497.0 [facility] Comment on above: Performed By: #### F ERR, B12FOL, FETIBC #### [facility] [address] [place] [address] Dr. Joselito Sauceda VIT B12 AND FOLATEon 022 Cobalamin (Vitamin B12) [Mass/Vol] 452.0 pg/mL Normal 239.0-931.0 [facility] Comment on above: Performed By: #### F ERR, B12FOL, FETIBC #### [facility] [address] [place] [address] Dr. Joselito Sauceda FOLATE 19.80 ng/mL Normal >=2.76 [facility] Comment on above: Performed By: #### F ERR, B12FOL, FETIBC #### [facility] [address] [place] [address] Dr. Joselito Sauceda CBC AUTO DIFFon 10-28-2021 BASO # 0.1 103/ul Normal 0.0-0.1 [facility] Comment on above: Performed By: #### C BC #### [facility] [address] [place] [address] Dr. Joselito Sauceda Basophils/100 WBC (Bld) 0.7 % Normal 0.2-2.0 [facility] Comment on above: Performed By: #### C BC #### [facility] [address] [place] [address] Dr. Joselito Sauceda EO # 0.2 103/ul Normal 0.0-0.7 [facility] Comment on above: Performed By: #### C BC #### [facility] [address] [place] [address] Dr. Joselito Sauceda Eosinophils/100 WBC (Bld) 2.2 % Normal 0.9-7.0 [facility] Comment on above: Performed By: #### C BC #### [facility] [address] [place] [address] Dr. Joselito Sauceda Erythrocyte distribution width (RBC) [Ratio] 12.1 % Normal 11.0-15.0 [facility] Comment on above: Performed By: #### C BC #### [facility] [address] [place] [address] Dr. Joselito Sauceda Hematocrit (Bld) [Volume fraction] 41.1 % Critically low 42.0-54.0 [facility] Comment on above: Performed By: #### C BC #### [facility] [address] [place] [address] Dr. Joselito Sauceda Hemoglobin (Bld) [Mass/Vol] 13.9 g/dL Critically low 14.0-18.0 [facility] Comment on above: Performed By: #### C BC #### [facility] [address] [place] [address] Dr. Joselito Sauceda IG # 0.03 10e3/ul Normal 0.00-0.03 [facility] Comment on above: Performed By: #### C BC #### [facility] [address] [place] [address] Dr. Joselito Sauceda IG % 0.4 % Normal 0.0-0.5 [facility] Comment on above: Performed By: #### C BC #### [facility] [address] [place] [address] Dr. Joselito Sauceda LYMPH # 1.6 103/ul Normal 1.2-3.8 [facility] Comment on above: Performed By: #### C BC #### [facility] [address] [place] [address] Dr. Joselito Sauceda Lymphocytes/100 WBC (Bld) 21.5 % Normal 20.5-60.0 [facility] Comment on above: Performed By: #### C BC #### [facility] [address] [place] [address] Dr. Joselito Sauceda MANUAL DIFF REQ NO Normal [facility] [place] [facility] Comment on above: Performed By: #### C BC #### [facility] [address] [address] [address] Joselito Sauceda MCH (RBC) [Entitic mass] 36.1 pg Critically high 25.9-34.0 [facility] Comment on above: Performed By: #### C BC #### [facility] [address] [place] [address] Dr. Joselito Sauceda MCHC (RBC) [Mass/Vol] 33.8 g/dL Normal 29.9-35.2 [facility] Comment on above: Performed By: #### C BC #### [facility] [address] [place] [address] Dr. Joselito Sauceda MCV (RBC) [Entitic vol] 106.8 fL Critically high 80.0-94 .0 [facility] Comment on above: Performed By: #### C BC #### [facility] [address] [place] [address] Dr. Joselito Sauceda MONO # 0.9 103/ul Critically high 0.3-0.8 [facility] [place] [facility] Comment on above: Performed By: #### C BC #### [facility] [address] [place] [address] Dr. Joselito Sauceda Monocytes/100 WBC (Bld) 12.5 % Critically high 1.7-12. 0 [facility] Comment on above: Performed By: #### C BC #### [facility] [address] [place] [address] Dr. Joselito Sauceda NEUT # 4.6 103/ul Normal 1.4-6.5 [facility] Comment on above: Performed By: #### C BC #### [facility] [address] [place] [address] Dr. Joselito Sauceda Neutrophils/100 WBC (Bld) 62.7 % Normal 43.0-75.0 [facility] Comment on above: Performed By: #### C BC #### [facility] [address] [address] [address] Joselito Sauceda Platelet mean volume (Bld) [Entitic vol] 9.5 fL Normal 9.5-13.5 [facility] Comment on above: Performed By: #### C BC #### [facility] [address] [address] [address] Joselito Sauceda PLT 187 103/ul Normal 150-450 [facility] Comment on above: Performed By: #### C BC #### [facility] [address] [address] [address] Joselito Sauceda RBC 3.85 106/ul Critically low 4.70-6.10 [facility] Comment on above: Performed By: #### C BC #### [facility] [address] [address] [address] Joselito Sauceda WBC 7.4 103/ul Normal 4.0-11.0 [facility] Comment on above: Performed By: #### C BC #### [facility] [address] [address] [address] Joselito Sauceda LIPID PROFILEon 10-28-2021 CHOL-HDL RATIO NORM SEE BELOW Normal [facility] Comment on above: Result Comment: 3.3 - 4.4 LOW RISK 4.4 - 7.1 AVERAGE RISK 7.1 - 11.0 MODERATE RISK >11.0 HIGH RISK Performed By: #### B MP, LIPID #### [facility] [address] [address] [address] Joselito Sauceda Cholesterol [Mass/Vol] 227 mg/dL Critically high <=200 [facility] Comment on above: Performed By: #### B MP, LIPID #### [facility] [address] [address] [address] Joselito Sauceda Cholesterol in HDL [Mass/Vol] 66 mg/dL Critically high 40-60 [facility] Comment on above: Performed By: #### B MP, LIPID #### [facility] [address] [place] [address] Dr. Joselito Sauceda Cholesterol in LDL [Mass/Vol] 141.6 mg/dL Normal [facility] Comment on above: Performed By: #### B MP, LIPID #### [facility] [address] [place] [address] Dr. Joselito Sauceda Cholesterol.total/Vandana sterol in HDL [Mass ratio] 3.4 {ratio} Normal [facility] Comment on above: Performed By: #### B MP, LIPID #### [facility] [address] [place] [address] Dr. Joselito Sauceda HDL NORMAL > or = 60 mg/dl - LOW CARDIOVASCULAR RISK <40 mg/dl - HIGH CARDIOVASCULAR RISK Normal [facility] Comment on above: Performed By: #### B MP, LIPID #### [facility] [address] [place] [address] Dr. Joselito Sauceda LDL CALC NORMAL SEE BELOW Normal [facility] Comment on above: Result Comment: <100 mg/dl OPTIMAL 100 - 129 mg/dl NEAR OR ABOVE OPTIMAL 130 - 159 mg/dl BORDERLINE HIGH 160 - 189 mg/dl HIGH >190 mg/dl VERY HIGH Performed By: #### B MP, LIPID #### [facility] [address] [place] [address] Dr. Joselito Sauceda Triglyceride [Mass/Vol] 97 mg/dL Normal <=150 [facility] Comment on above: Performed By: #### B MP, LIPID #### [facility] [address] [place] [address] Dr. Joselito Sauceda VLDL CALC 19.4 mg/dL Normal [facility] Comment on above: Performed By: #### B MP, LIPID #### [facility] [address] [place] [address] Dr. Joselito Sauceda PROF CHEM 8 (BAS METB)on Anion gap [Moles/Vol] 13.0 mmol/L Normal [facility] Comment on above: Performed By: #### B MP, LIPID #### [facility] [address] [place] [address] Dr. Joselito Sauceda Calcium [Mass/Vol] 8.8 mg/dL Normal 8.5-10.1 [facility] Comment on above: Performed By: #### B MP, LIPID #### [facility] [address] [place] [address] Dr. Joselito Sauceda Chloride [Moles/Vol] 103 mmol/L Normal 98-107 [facility] Comment on above: Performed By: #### B MP, LIPID #### [facility] [address] [place] [address] Dr. Joselito Sauceda CO2 [Moles/Vol] 26.0 mmol/L Normal 22.0-30.0 [facility] Comment on above: Performed By: #### B MP, LIPID #### [facility] [address] [place] [address] Dr. Joselito Sauceda Creatinine [Mass/Vol] 0.75 mg/dL Normal 0.66-1.25 [facility] Comment on above: Performed By: #### B MP, LIPID #### [facility] [address] [place] [address] Dr. Joselito Sauceda EGFR-AF KAZAKH >60 Normal >=60 [facility] Comment on above: Performed By: #### B MP, LIPID #### [facility] [address] [place] [address] Dr. Joselito Sauceda EGFR-NON AF KAZAKH >60 Normal >=60 [facility] Comment on above: Performed By: #### B MP, LIPID #### [facility] [address] [place] [address] Dr. Joselito Sauceda Glucose [Mass/Vol] 139 mg/dL Critically high 74-106 [facility] Comment on above: Performed By: #### B MP, LIPID #### [facility] [address] [place] [address] Dr. Joselito Sauceda Potassium [Moles/Vol] 4.0 mmol/L Normal 3.4-5.0 [facility] Comment on above: Performed By: #### B MP, LIPID #### [facility] [address] [place] [address] Dr. Joselito Sauceda Sodium [Moles/Vol] 138 mmol/L Normal 137-145 [facility] Comment on above: Performed By: #### B MP, LIPID #### [facility] [address] [place], [place] [address] Dr. Joselito Sauceda Urea nitrogen [Mass/Vol] 11.0 mg/dL Normal 7.0-18.0 [facility] Comment on above: Performed By: #### B MP, LIPID #### [facility] [address] [place], [place] [address] Dr. Joselito Sauceda Urea nitrogen/Creatinine [Mass ratio] 14.7 mg/mg Normal [facility] Comment on above: Performed By: #### B MP, LIPID #### [facility] [address] [place], [place] [address] Dr. Joselito Sauceda Vital Signs Date Time Vital Sign Value Performing Clinician Facility 01-12-2025 13:19-0400 Body height 162.56 cm Evans Ball DO Work Phone: [facility] 01-12-2025 13:19-0400 Body mass index (BMI) [Ratio] 24.5 kg/m2 Evans Ball DO Work Phone: [facility] 01-12-2025 13:19-0400 Body weight 64.86 kg Evans Ball DO Work Phone: [facility] 01-09-2025 14:56-0400 Body height 162.56 cm Evans Ball DO Work Phone: [facility] 01-09-2025 14:56-0400 Body mass index (BMI) [Ratio] 24.5 kg/m2 Evans Ball DO Work Phone: [facility] 01-09-2025 14:56-0400 Body temperature 97.4 [degF] Evans Ball DO Work Phone: [facility] 01-09-2025 14:56-0400 Body weight 64.86 kg Evans Ball DO Work Phone: [facility] 01-09-2025 14:56-0400 Diastolic blood pressure 73 mm[Hg] Evans Ball DO Work Phone: [facility] 01-09-2025 14:56-0400 Heart rate 72 /min Evans Ball DO Work Phone: [facility] 01-09-2025 14:56-0400 Respiratory rate 18 /min Evans Ball DO Work Phone: [facility] 01-09-2025 14:56-0400 SaO2% (BldA) [Mass fraction] 96 % Evans Ball DO Work Phone: [facility] 01-09-2025 14:56-0400 Systolic blood pressure 133 mm[Hg] Evans Ball DO Work Phone: [facility] 12-29-2024 09:02-0400 Body height 162.56 cm Evans Ball DO Work Phone: [facility] 12-29-2024 09:02-0400 Body mass index (BMI) [Ratio] 24.5 kg/m2 Evans Ball DO Work Phone: [facility] 12-29-2024 09:02-0400 Body weight 64.86 kg Evans Ball DO Work Phone: [facility] 12-29-2024 09:02-0400 Diastolic blood pressure 86 mm[Hg] Evans Ball DO Work Phone: [facility] 12-29-2024 09:02-0400 Heart rate 77 /min Evans Ball DO Work Phone: [facility] 12-29-2024 09:02-0400 Respiratory rate 12 /min Evans Ball DO Work Phone: [facility] 12-29-2024 09:02-0400 Systolic blood pressure 132 mm[Hg] Veans Ball DO Work Phone: [facility] 04-28-2024 09:34-0400 Body height 162.56 cm [facility] 04-28-2024 09:34-0400 Body mass index (BMI) [Ratio] 24.9 kg/m2 [facility] 04-28-2024 09:34-0400 Body weight 65.94 kg [facility] 04-28-2024 09:34-0400 Diastolic blood pressure 86 mm[Hg] [facility] 04-28-2024 09:34-0400 Heart rate 71 /min [facility] 04-28-2024 09:34-0400 Respiratory rate 12 /min [facility] 04-28-2024 09:34-0400 Systolic blood pressure 121 mm[Hg] [facility] 10-25-2023 11:29-0400 Body height 162.56 cm DO Evans Ball Work Phone: [facility] 10-25-2023 11:29-0400 Body mass index (BMI) [Ratio] 24.7 kg/m2 DO Evans Ball Work Phone: [facility] 10-25-2023 11:29-0400 Body weight 65.48 kg DO Evans Ball Work Phone: [facility] 10-25-2023 11:29-0400 Diastolic blood pressure 75 mm[Hg] DO Evans Ball Work Phone: [facility] 10-25-2023 11:29-0400 Heart rate 67 /min DO Evans Ball Work Phone: [facility] 10-25-2023 11:29-0400 Respiratory rate 12 /min DO Evans Ball Work Phone: [facility] 10-25-2023 11:29-0400 Systolic blood pressure 115 mm[Hg] DO Evans Ball Work Phone: [facility] 09-05-2023 15:08-0500 Body height 162.56 cm [facility] 09-05-2023 15:08-0500 Body mass index (BMI) [Ratio] 24.3 kg/m2 [facility] 09-05-2023 15:08-0500 Body weight 64.41 kg [facility] 09-05-2023 15:08-0500 Diastolic blood pressure 72 mm[Hg] [facility] 09-05-2023 15:08-0500 Heart rate 69 /min [facility] 09-05-2023 15:08-0500 Respiratory rate 12 /min [facility] 09-05-2023 15:08-0500 Systolic blood pressure 117 mm[Hg] [facility] 08-17-2023 11:30-0500 Body height 162.56 cm Evans Ball Other [facility] 08-17-2023 11:30-0500 Body mass index (BMI) [Ratio] 24.51 kg/m2 Evans Ball Other [facility] [employer] Other 08-17-2023 11:30-0500 Body weight 64.77 kg Evans Ball Other [facility] 08-17-2023 11:30-0500 Diastolic blood pressure 76 mm[Hg] Evans Ball Other [facility] 08-17-2023 11:30-0500 Respiratory rate 12 /min Evans Ball Other [facility] [employer] Other 08-17-2023 11:30-0500 Systolic blood pressure 123 mm[Hg] Evans Ball Other [facility] Encounters Encounter Date Encounter Type Care Provider Facility Start: 01-21-2025 ambulatory Aime ROA Facility :[facility] Start: 01-14-2025 End: 01-14-2025 ambulatory Evans Ball DO Work Phone: [facility] Work Phone: Start: 01-14-2025 End: 01-14-2025 Patient encounter procedure Thomas Mcwilliams DO -[facility] Work Phone: Start: 01-12-2025 End: 01-12-2025 ambulatory Evans Ball DO Work Phone: [facility] Work Phone: Start: 01-12-2025 End: 01-12-2025 Patient encounter procedure Thomas Mcwilliams DO -[facility] Work Phone: Start: 01-11-2025 End: 01-11-2025 ambulatory Evans Ball DO Work Phone: [facility] Work Phone: Start: 01-11-2025 End: 01-11-2025 Departed Referred Joe Horan DO -[facility] [employer] [facility] Start: 01-11-2025 Non-patient / Non-visit Joe Horan DO -[facility] Work Phone: Start: 01-09-2025 End: 01-09-2025 Departed Referred Nimisha Rosales [facility] -[facility] Work Phone: Start: 01-09-2025 End: 01-09-2025 ambulatory Evans Ball DO Work Phone: [facility] Work Phone: Start: 01-09-2025 End: 01-09-2025 Patient encounter procedure Nimisha Rosales [facility] -[facility] Work Phone: Start: 12-29-2024 ambulatory Aime ROA Facility:[facility] Start: 12-29-2024 End: 12-29-2024 Patient encounter procedure Evans Terrence DO -[facility] Work Phone: Start: 12-26-2024 Patient encounter procedure Evans Ball DO Work Phone: [facility] Start: 04-28-2024 End: 04-28-2024 ambulatory [facility] Work Phone: Start: 04-28-2024 End: 04-28-2024 Patient encounter procedure [facility] Work Phone: Start: 10-25-2023 End: 10-25-2023 ambulatory DO Evans Ball Work Phone: [facility] Work Phone: Start: 10-25-2023 End: 10-25-2023 Patient encounter procedure DO Evans Ball Work Phone: [facility] Work Phone: Start: 10-08-2023 End: 10-08-2023 ambulatory DO Evans Conteh Work Phone: [facility] Work Phone: Start: 10-08-2023 End: 10-08-2023 Patient encounter procedure DO Evans Conteh Work Phone: [facility] Work Phone: Start: 10-08-2023 End: 10-08-2023 ambulatory DO Evans Conteh Work Phone: [facility] Work Phone: Start: 10-08-2023 End: 10-08-2023 Patient encounter procedure DO Evans Conteh Work Phone: [facility] Start: 09-07-2023 Non-patient / Non-visit DO Saurabh Conteh Work Phone: [facility] Work Phone: Start: 09-05-2023 End: 09-05-2023 ambulatory [facility] Work Phone: Start: 09-05-2023 End: 09-05-2023 Patient encounter procedure [facility] Work Phone: Start: 08-30-2023 Non-patient / Non-visit [facility] Work Phone: Start: 08-17-2023 End: 08-17-2023 ambulatory Evans Conteh Other [facility] [employer] Other Start: 08-17-2023 Patient encounter procedure Evans Conteh [facility] Start: 08-17-2023 Telephone encounter Evans Conteh [facility] Start: 08-17-2023 End: 08-17-2023 Patient encounter procedure [facility]- Start: 02-02-2022 End: 02-03-[address] EVANS CONTEH Facility:[facility] Start: 11-02-2021 End: 11-03-[address] EVANS CONTEH Facility:[facility] Start: 10-28-2021 End: 10-29-[address] EVANS CONTEH Facility:[facility] Start: 06-07-2021 End: 06-08-2021 ambulatory IMMANUEL SOTELO Facility:[facility] Procedures Date Procedure Procedure Detail Performing Clinician Start: 01-11-2025 Nucleated red blood cell count procedure Evans Conteh DO Work Phone: Comment on above: Body fluid is partia lly clotted and/or cell clumps or debris are present. Fluid cell count and differential results may not be reliable. Clinical correlation is recommended.--- 01/11/25 1526 ---Nucleated Cells previously reported as: /uLBody fluid is partially clotted and/or cell clumps or debris are present. Fluid cell count and differential results may not be reliable. Clinical correlation is recommended.The reference interval and other method performance specifications have not been established for this body fluid. The test result must be integrated into the clinical context for interpretation. Start: 01-09-2025 Aerobic microbial culture Evans Conteh DO Work Phone: Start: 01-09-2025 Anaerobic microbial culture Evans Conteh DO Work Phone: Start: 01-09-2025 Gram stain microscopy B meli Conteh DO Work Phone: Start: 10-08-2023 Plain X-ray of right hand DO Evans Conteh Work Phone: Start: 10-28-[address] TURNER CONTEH Comment on above: Performed By: #### P [facility] #### [facility] [address] [place] [address] Dr. Joselito Sauceda Plan of Treatment Date Care Activity Detail Author Start: 01-09-2025 [facility] Start: 01-09-2025 Aerobic Culture Aerobic Culture [facility] Start: 01-09-2025 Aerobic microbial culture Aerobic Cu lture [facility] Start: 01-09-2025 Anaerobic Culture Anaerobic Culture [facility] Start: 01-09-2025 Anaerobic microbial culture Anaerobic Culture [facility] Start: 01-09-2025 Microscopic observat ion [Identifier] in Unspecified specimen by Gram stain [facility] Start: 12-29-2024 Patient referral [facility] Work Phone: Start: 10-08-2023 Plain X-ray of right hand XR hand RT min 3V* [facility] Start: 10-08-2023 XR Hand - right GE 3 Views [facility] Bacteria identified in Unspecified specimen by Aerobe culture [facility] Bacteria identified in Unspecified specimen by Anaerobe culture [facility] Patient referral [facility] Work Phone: US Extremity [facility] US Extremity [facility] US Upper extremity a rtery - right [facility] Immunizations Immunization Date Immunization Notes Care Provider Fa ciliayad 02-07-2022 Prevnar 20 Evans Conteh Other [facility] 10-19-2020 COVID-19 Vaccine Pfi zer - Documentation Purposes Only Evans Conteh Other [facility] 09-27-2020 COVID-19 Vaccine Pfi zer - Documentation Purposes Only Evans Conteh Other [facility] 06-16-2020 influenza virus vaccine, split virus (incl. purified surface antigen) Evans Conteh Other CDEL Other 06-16-2020 influenza virus vaccine, unspecified formulation [facility] Payers Date Payer Category Payer Medicare [id number] 1961 Self-pay 1955 Unknown [id number] 2.16.84 [id number] 1955 Unknown [id number] 2.16.84 [id number] 1955 Unknown [id number] 2.16.84 [id number] 1955 Unknown [id number] 2.16.8 [id number] Unknown [id number] 2.16.84 [id number] Unknown Sheela BC/BS [id number] Unknown [id number] 2.16.8 [id number] Unknown [id number] 2.16.8 [id number] Social History Date Type Detail Facility Sex Assigned At CDEL Other Start: 09-05-2023 End: 09-05-2023 Tobacco smoking status [facility] Smoker (finding) [facility] Start: 1955 Sex Assigned At Male [facility] Start: 01-09-2025 Tobacco smoking stat [facility] Smokes tobacco daily (finding) [facility] Sex Male (finding) [facility] Clinical Notes 08-17-2023 to 12-29-2024 Note Date & Type Note Facility 12-29-2024 Evaluation note Diagnosis Onset Date Resolution Chronic bronchitis acute December 142024 8:54am Colon cancer screening acute [facility] 2024 8:54am Hypercholesterolemia acute December 29, 2024 8:54am Medicare annual wellness visit, subsequent acute December 29 8:54am Nicotine addiction acute December 142024 8:54am Screening PSA (prostate specific antigen) acute December 29 8:54am [facility] Work Phone: 1(412) 647-961306-16-2025 Evaluation note* Diagnosis Onset Date Resolution Status Admit Date Chronic bronchitis acute December 142024 8:54am Colon cancer screening acute [facility] 2024 8:54am Hypercholesterolemia acute December 29, 2024 8:54am Medicare annual wellness vis it, subsequent acute December 29, 2024 8:54am Nicotine addiction acute December 142024 8:54am Screening PSA (prostate spec ific antigen) acute December 29, 2024 8:54am Olecranon bursitis, left elbow acute January 09, 2025 2:28pm [facility] Work Phone: 1(210) 432-746606-16-2025 Evaluation note* Diagnosis Onset Date Resolution Status Admit Date Chronic bronchitis acute December 142024 8:54am Colon cancer screening acute [facility] 2024 8:54am Hypercholesterolemia acute December 29, 2024 8:54am Medicare annual wellness vis it, subsequent acute December 29, 2024 8:54am Nicotine addiction acute December 142024 8:54am Screening PSA (prostate spec ific antigen) acute December 29, 2024 8:54am Olecranon bursitis, left elbow acute January 09, 2025 2:28pm Olecranon bursitis, left elbow acute January 12, 2025 1:02pm [facility] Work Phone: 1(221) 398-369206-16-2025 Evaluation note* Diagnosis Onset Date Resolution Status Admit Date Chronic bronchitis acute December 142024 8:54am Colon cancer screening acute [facility] 2024 8:54am Hypercholesterolemia acute December 29, 2024 8:54am Medicare annual wellness vis it, subsequent acute December 29, 2024 8:54am Nicotine addiction acute December 142024 8:54am Screening PSA (prostate spec ific antigen) acute December 29, 2024 8:54am Olecranon bursitis, left elbow acute January 09, 2025 2:28pm Olecranon bursitis, left elbow acute January 12, 2025 1:02pm Olecranon bursitis, left elbow acute January 14, 2025 7:52am [facility] Work Phone: 1(694) 101-147102-02-2024 Evaluation note* Encounter Date Diagnosis Assessment Notes Treatment Notes Treatment Clinical Notes Aug, Medicare annual wellness visit, subsequent [...] or hematochezia. He denies heartburn or dysphagia [facility] Other Evaluation note* Diagnosis Onset Date Resolution Status Cigarette nicotine dependence, uncomplicated acute Palpable mass of soft tissue of wrist acute [facility] Work Phone: Evaluation note* Diagnosis Onset Date Resolution Status Cigarette nicotine dependence, uncomplicated acute Palpable mass of soft tissue of wrist acute Arthritis of right wrist acu te Pain in right wrist acute Palpable mass of soft tissue of wrist acute [facility] Work Phone: Evaluation note* Diagnosis Onset Date Resolution Status Cigarette nicotine dependence, uncomplicated acute Palpable mass of soft tissue of wrist acute Arthritis of right wrist acu te Pain in right wrist acute Palpable mass of soft tissue of wrist acute Anemia acute Cigarette nicotine dependence, uncomplicated acute Elevated cholesterol acute [facility] Work Phone: Evaluation noteNo assessment information available [facility] Work Phone: History general Narrative - Reported* Type Description Date Medical History Elevated ferritin Medical History Macrocytosis Medical History Chronic bronchitis, simple Medical History Pure hypercholesterolemia Medical History Body mass index (BMI) of 25.0 to 29.9 Medical History Cigarette nicotine dependence, u ncomplicated Medical History COPD exacerbation Medical History Left elbow pain Medical History OPAL (generalized anxiety disorde r) Medical History Anemia Medical History Megaloblastic anemia Medical History Primary osteoarthritis of left k nee Medical History Acute pain of left knee Medical History Acute bronchitis due to other sp ecified organisms Medical History Acute recurrent maxillary sinusi tis Medical History Seasonal allergic rhinitis due t o pollen Surgical History Arthroscopy Knee 09/11/2017 Hospitalization History see surgical history CDEL Other Summary Purpose Family History No Family [...] 2024 8:5 4am Medicare annual wellness visit, [facility] December 29, 2024 8:54am Nicotine addiction December 29, 2024 8:54 am Screening PSA (prostate specific antigen ) December 29, 2024 8:54am Olecranon bursitis, left elbow December 2:28pm Chief Complaint Admit Date Bump above L Ear December 29, 2024 8:54 am Left elbow swelling January 09, 2025 2:28 pm M70.January 09, 2025 3:15 pm Unknown January 11, 2025 10:5 5am Chief Complaint Admit Date Bump above L Ear December 29, 2024 8:54 am Left elbow swelling January 09, 2025 2:28 pm M70.January 09, 2025 3:15 pm Unknown January 11, 2025 10:5 5am ER [facility] LT ELBOW BURSITIS WX January 12, 2 025 1:02pm Reason for Visit Admit Date Chronic bronchitis December 29, 2024 8:54 am Colon cancer screening December 29, 2024 8 :54am Hypercholesterolemia December 29, 2024 8:5 4am Medicare annual wellness visit, [facility] December 29, 2024 8:54am Nicotine addiction December 29, 2024 8:54 am Screening PSA (prostate specific antigen ) December 29, 2024 8:54am Olecranon bursitis, left elbow December 2:28pm Olecranon bursitis, left elbow December 1:02pm Chief Complaint Admit Date Bump above L Ear December 29, 2024 8:54 am Left elbow swelling January 09, 2025 2:28 pm M70.January 09, 2025 3:15 pm Unknown January 11, 2025 10:5 5am ER [facility] LT ELBOW BURSITIS WX January 12, 2 025 1:02pm TUESDAY January 14, 2025 7:52a m Reason for Visit Admit Date Chronic bronchitis December 29, 2024 8:54 am Colon cancer screening December 29, 2024 8 :54am Hypercholesterolemia December 29, 2024 8:5 4am Medicare annual wellness visit, [facility] December 29, 2024 8:54am Nicotine addiction December 29, 2024 8:54 am Screening PSA (prostate specific antigen ) December 29, 2024 8:54am Olecranon bursitis, left elbow December 2:28pm Olecranon bursitis, left elbow December 1:02pm Olecranon bursitis, left elbow January 14, 2025 7:52am Additional Source Comments (unrecognized sect ion and content) No Status Records FoundNo Status Records FoundNo Status Records Found INFORMATION SOURCE (unrecogn ized section and content) DATE CREATED AUTHOR 02/08/2022 [facility] DATE CREATED AUTHOR AUTHOR'S ORGANIZ ATION 01/14/2025 [facility] DATE CREATED AUTHOR AUTHOR'S ORGANIZ ATION 01/18/2025 [facility] REASON FOR VISIT (unrecogniz ed section and content) Wellness- possible URI - ove r it nowLDCT Care Teams (unrecognized sec tion and content) Team Status: Active Member Role Status Dates Evans Conteh DO Primary Care Provider Active Team [...] Status: Inactive Member Role Status Dates Evans Terrence DO Primary Care Provide r, Attending Provider Active Start: October 25, 2023 End: October 25, 2023 Team Status: Inactive Member Role Status Kelley Krueger Terrence DO Primary Care Provide r, Attending Provider Active Start: April 28, 2024 End: April 28, 2024 Team Status: Inactive Member Role Status Dates Evans Conteh , Primary Care Provider Active Start: December 29, 2024 End: December 29, 2024 Evans Conteh , Attending Provider Active Sta rt: December 29, 2024 End: December 29, 2024 Team Status: Inactive Member Role Status Kelley Conteh DO Primary Care Provider Active Start: January 09, 2025 End: January 09, 2025 Nimisha Garnett APRN Attending Provider Active Start: January 09, 2025 End: January 09, 2025 Team Status: Inactive Member Role Status Kelley Garnett APRN Attending Provider Active Start: January 09, 2025 End: January 09, 2025 Team Status: Active Member Role Status Kelley Mo , DO Attending Provider Active S tart: January 11, 2025 Team Status: Inactive Member Role Status Kelley Mo , DO Attending Provider Active S tart: January 11, 2025 End: January 11, 2025 Team Status: Inactive Member Role Status Kelley Mcwilliams DO Attending Provider Active S tart: January 12, 2025 End: January 12, 2025 Evans Conteh , DO Primary Care Provider Active Start: January 12, 2025 End: January 12, 2025 Team Status: Inactive Member Role Status Kelley Conteh DO Primary Care Provider Active Start: January 14, 2025 End: January 14, 2025 Thomas Mcwilliams , DO Attending Provider Active S tart: January 14, 2025 End: January 14, 2025 Goals (unrecognized section and content) Goals [...] BE BASED ON THE PRIMARY CLINICAL RECORDS. [facility]. provides no warranty or guarantee of the accuracy or completeness of information in this document.
--- NOTE | 2025-01-18 07:19 | ED_ITS ---
HPI HPI - General Adult General Chief complaint: Abdominal Pain Stated complaint: ABDOMINAL PAIN Time Seen by Provider: 01/18/25 07:06 Source: patient Mode of arrival: ambulance History of Present Illness HPI narrative: 69-year-old male presents because he states he is constipated. He has not had a bowel movement in a week. He has been on pain medication because of the left elbow issue which she has followed up with orthopedics for. No fever vomiting or injury. Related Data Previous Rx's ?Medication ?Instructions ?Recorded acetaminophen 300 mg-codeine 30 mg 1 tab PO Q6H PRN pa in 5 days #20 01/11/25 tablet tabs cephalexin 500 mg capsule 500 mg PO QID 10 days #40 ca ps 01/11/25 Allergies Allergy/AdvReac Type Severity Reaction Status Date / Time No Known Drug Allergies Allergy Verified 01/18/25 06:50 Opioid HPI Opioid Management Most Recent Opioid Data: Last Pain Scale 9 Today, 06:42 Review of Systems ROS Narrative A ten point review of systems is negative except as noted above. PFSH PFSH Social History Little interest or pleasure in doing things: not at all Feeling down, depressed, or hopeless: not at all Exam Narrative Exam Narrative: Nurses note and vital signs reviewed and patient is not hypoxic. General: The patient appears well and in no apparent distress. Patient is resting comfortably on cart. Skin: Warm, dry, no pallor noted. There is no rash noted. Head: Normocephalic, atraumatic Eye: Normal conjunctiva, no drainage Ears, Nose, Mouth, and Throat: oral mucosa is moist. Nares patent. Cardiovascular: Regular Rate and Rhythm Respiratory: Patient is in no distress, no accessory muscle use, lungs are clear to auscultation, no wheezing, rales or rhonchi Back: non-tender, no CVA tenderness bilaterally to percussion. GI: Soft and nontender and nondistended Musculoskeletal: The patient has no evidence of calf tenderness, no pitting edema, symmetrical pulses noted bilaterally Neurological: A&O, normal speech Psychiatric: Cooperative Constitutional Vital Signs, click to edit/add: Last Vital Signs Temp 98.4 F 01/18/25 06:42 Pulse 75 01/18/25 06:42 Resp 18 01/18/25 06:42 BP 131/76 01/18/25 06:42 Pulse Ox 97 01/18/25 06:42 O2 Del Method Room Air 01/18/25 06:42 Course Vital Signs Vital signs: Vital Signs Temperature 98.4 F 01/18/25 06:42 Pulse Rate 75 01/18/25 06:42 Respiratory Rate 18 01/18/25 06:42 Blood Pressure 131/76 01/18/25 06:42 Pulse Oximetry 97 01/18/25 06:42 Oxygen Delivery Method Room Air 01/18/25 06:42 Temperature 98.4 F 01/18/25 06:42 Pulse Rate 75 01/18/25 06:42 Respiratory Rate 18 01/18/25 06:42 Blood Pressure 131/76 01/18/25 06:42 Pulse Oximetry 97 01/18/25 06:42 Oxygen Delivery Method Room Air 01/18/25 06:42 Medical Decision Making MDM Narrative Medical decision making narrative: The patient was disimpacted here and feels much improved. Treatment diagnosis and follow-up were discussed with the patient. Differential Diagnosis Differential Diagnosis: Constipation, obstipation, impaction Imaging Data Abdominal x-ray: Radiologist's impression: ITS Impressions Abdomen X-Ray 01/18/25 07:19 IMPRESSION: Moderate constipation Impression dictated by: Joe Bentley M.D. 01/18/2025 8:43 AM Dictation Location: [place] [address] Electronically authenticated by: [id number] Y Date: 01/18/2025 08:43 Discharge Plan Discharge Chief Complaint: Abdominal Pain Clinical Impression: Constipation Patient Disposition: Home, Self-Care Time of Disposition Decision: 08:48 Condition: Good Mode of Transportation: Private Vehicle Prescriptions / Home Meds: No Action acetaminophen-codeine 300-30 mg tablet 1 tab PO Q6H PRN (Reason: pain) 5 Days Qty: 20 0RF cephalexin 500 mg capsule 500 mg PO QID 10 Days Qty: 40 0RF Print Language: Turkish Instructions: Constipation (ED) Additional Instructions: Take a dose of MiraLAX daily for the next week. Referrals: Evans Ocampo DO [Primary Care Provider, Internal Medicine] - 1 week
--- NOTE | 2025-01-18 07:19 | XR_ITS ---
The [address] [address] Patient Name: OREN PELLETIER MRN: [id number] date: 1955 Sex: M Assigned Patient Location: ER Current Patient Location: ER Accession/Order Number: [id number] Exam Date: 01/18/2025 08:42 Report Date: 01/18/2025 08:43 At the request of: MINGO GALDAMEZ MD Procedure: XR abdomen 1V Single view of abdomen COMPARISON: None HISTORY: Constipation for one week. THORAX: Lung bases unremarkable. FREE AIR: Supine position limits assessment BOWEL: No gaseous intestinal distention. STOOL: Moderate burden of stool throughout the colon RENAL STONES: No significant stones present. VASCULAR CALCIFICATIONS: Unremarkable SOFT TISSUE: Unremarkable BONES: Moderate scoliosis and degenerative change. POSTSURGICAL CHANGES: None XR/XR abdomen 1V IMPRESSION: Moderate constipation Impression dictated by: Joe Bentley M.D. 01/18/2025 8:43 AM Dictation Location: [employer] Electronically authenticated by: [id number] Y Date: 01/18/2025 08:43
== END 2025-01-18 08:45 | disposition home or self-care (01) ==
PROVIDERS: Emergency Provider Emergency Medicine; PCP Internal Medicine
DX: K59.00 Constipation, unspecified (principal)
CPT/HCPCS: 74018; 99283